=== PATIENT | female | born 1985 | race Caucasian/White ===

== ENCOUNTER 2017-08-26 10:16 | Emergency (ER) | payer OTHER ==
[2017-08-26] MEDS ORDERED: ONDANSETRON 4 MG/2 ML VIAL IVP STA (10:53)
[2017-08-26] MEDS ORDERED: HYDROmorphone 1 MG/ML SYRINGE IVP STA (10:53)
[2017-08-26 10:56] LABS: BILIRUBIN,URINE NEGATIVE (NEGATIVE)
[2017-08-26 11:00] LABS: HCG UR QUAL NEGATIVE; UA w/ MICROSCOPIC CHARGE YES
--- NOTE | 2017-08-26 11:00 | ED Physician Documentation ---
History of Present Illness - Stated complaint Stated Complaint: FEMALE - Chief complaint Chief Complaint: General - Additonal information Additional information: hx from pt 31 f to ER with NVD yesterday today several TBS BRBPR no fever no abd pain no travel no bad fod no sick contacts no fhx colon CA crohns or UC LMP > 1 yr ago, breast feeding her 18 m old, might be preg Review of Systems Constitutional: denies: Fever, Chills GI: reports: Vomiting, Diarrhea, Bloody / black stool. 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, Other Psych: Anxiety - Past Surgical History Past Surgical History: No - Present Medications Home Medications: Ambulatory Orders Medication Instructions Recorded Confirmed Metformin HCl 500 mg PO BID 04/06/15 08/26/17 Sertraline HCl [Zoloft] 100 mg PO DAILY 04/06/15 08/26/17 - Allergies Allergies/Adverse Reactions: Allergies Allergy/AdvReac Type Severity Reaction Status Date / Time No Known Drug Allergies Allergy Verified 07/29/16 13:22 - Social History Does the pt smoke?: No Smoking Status: Never smoker Does the pt drink ETOH?: No Does the pt have substance abuse?: No - Immunizations Immunizations are current?: Yes - POLST Patient has POLST: No PD ED PE NORMAL - Vitals Vital signs reviewed: Yes - Cardiac Cardiac: RRR - Respiratory Respiratory: No respiratory distress, Clear bilaterally - Abdomen Abdomen: Soft, Non tender - Rectal Rectal: Other (no hemorrhoid, no fissures, no mass on SHEA, small amt mucous and yellow brown stool occult blood neg) Results - Vitals Vitals: Vital Signs - 24 hr 08/26/17 10:26 Temperature 36.3 C L Heart Rate 85 Respiratory 16 Rate Blood Pressure 128/83 H O2 Saturation 96 Oxygen O2 Source Room air - Labs Labs: Laboratory Tests 08/26/17 08/26/17 10:35 11:00 Hgb 12.9 Urine Color YELLOW Urine Clarity HAZY Urine pH 6.0 Ur Specific [place] 1.025 Urine Protein NEGATIVE Urine Glucose (UA) NEGATIVE Urine Ketones NEGATIVE Urine Occult Blood NEGATIVE Urine Nitrite NEGATIVE Urine Bilirubin NEGATIVE Urine Urobilinogen 0.2 (NORMAL) Ur Leukocyte Esterase TRACE H Urine RBC 0-5 Urine WBC 4-5 Ur Squamous Epith Cells MANY Squamous H Urine Bacteria Many H Urine Mucus Marked Strands Ur Microscopic Review INDICATED Urine Culture Comments NOT INDICATED Urine HCG, Qual NEGATIVE Departure - Departure Disposition: 01 Home, Self Care Clinical Impression: Rectal bleed Condition: Good Instructions: ED Hematochezia Stable Follow-Up: [facility] [Provider Group] Comments: The test was negative. Your blood count is fine right now. On exam there is no further ongoing bleeding. And the diarrhea seems better. So for now it is OK for you to go home and enjoy your Thanksgiving. But please follow up at [facility] Thursday after the iday weekend to recheck your blood count and to discuss getting a colonoscopy to look for any bleeding polyps or bowel diseases such as crohns disease Return to the ER if worse over the weekend Forms: Activity restrictions
[2017-08-26 11:06] LABS: UR CULTURE IF IND NOT INDICATED
[2017-08-26 11:53] VITALS: BP 120/80
== END 2017-08-26 11:53 | disposition home or self-care (01) ==
LOC: ED 10:16
DX: K62.5 Hemorrhage of anus and rectum (principal)
CPT/HCPCS: 36415; 80048; 81001; 81003; 81025; 84703; 85018; 87086; 99283

== ENCOUNTER 2019-02-04 17:06 | Outpatient (CLI) | payer OTHER | END 2019-02-04 17:07 | disposition EMS.NT | LOC: EMS 17:06 | PROVIDERS: ATTEND Surgery | DX: R55 Syncope and collapse (principal); R11.2 Nausea with vomiting, unspecified ==

== ENCOUNTER 2019-07-23 10:13 | Emergency (ER) | payer OTHER ==
[2019-07-23 10:23] VITALS: BP 128/70
--- NOTE | 2019-07-23 10:51 | ED Physician Documentation ---
PD HPI URI - Stated complaint Stated Complaint: THROAT PX/FEVER - Chief complaint Chief Complaint: Heent - History obtained from History obtained from: Patient - History of Present Illness Timing - onset: How many days ago (2) Timing duration: Days (2) Timing details: Abrupt onset, Still present Associated symptoms: Fever, Chills, Sore throat, Swollen nodes. No: Nasal congestion, Dry cough, NVD Contributing factors: Sick contact (her daughter has similar for the past 4 days). 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 Psych: Anxiety - Past Surgical History Past Surgical History: No - Present Medications Home Medications: Ambulatory Orders Medication Instructions Recorded Confirmed Metformin HCl 500 mg PO BID 04/06/15 08/26/17 Sertraline HCl [Zoloft] 100 mg PO DAILY 04/06/15 08/26/17 Cephalexin [Keflex] 500 mg PO TID #21 capsule 07/23/19 Hydrocodone/Acetaminophen 1 each PO Q6H PRN #14 tablet 07/23/19 [Hydrocodon-Acetaminophen 5-325] dexAMETHasone [Decadron] 4 mg PO DAILY #5 tablet 07/23/19 - Allergies Allergies/Adverse Reactions: Allergies Allergy/AdvReac Type Severity Reaction Status Date / Time No Known Drug Allergies Allergy Verified 07/29/16 13:22 - Social History Does the pt smoke?: No Smoking Status: Never smoker Does the pt drink ETOH?: No Does the pt have substance abuse?: No - Immunizations Immunizations are current?: Yes - POLST Patient has POLST: No PD ED PE NORMAL - Vitals Vital signs reviewed: Yes - General General: Alert and oriented X 3, No acute distress, Well developed/nourished - HEENT HEENT: Ears normal. No: Pharynx benign (tonsils enlarged with white exudates. Rest of mouth is okay. ) - Neck Neck: Supple, no meningeal sign, Other (anterior adenopathy, tender, bilaterally. ) - Cardiac Cardiac: RRR, No murmur - Respiratory Respiratory: Clear bilaterally - Abdomen Abdomen: Soft, Non tender, No organomegaly - Derm Derm: Normal color, Warm and dry, No rash - Neuro Neuro: Alert and oriented X 3, No motor deficit, Normal speech Results - Vitals Vitals: Vital Signs - 24 hr 07/23/19 10:21 Temperature 37.4 C Heart Rate 94 Respiratory 18 Rate Blood Pressure 128/70 O2 Saturation 98 Oxygen O2 Source Room air - Labs Labs: Laboratory Tests 07/23/19 11:20 Group A Strep Rapid POSITIVE H PD MEDICAL DECISION MAKING - ED course Complexity details: considered differential, d/w patient Departure - Departure Disposition: 01 Home, Self Care Clinical Impression: Acute streptococcal pharyngitis Condition: Stable Record reviewed to determine appropriate education?: Yes Instructions: ED Strep Pharyngitis Conf Follow-Up: Fifi Bland ARNP [Primary Care Provider] - Prescriptions: Cephalexin [Keflex] 500 mg PO TID #21 capsule dexAMETHasone [Decadron] 4 mg PO DAILY #5 tablet Hydrocodone/Acetaminophen [Hydrocodon-Acetaminophen 5-325] 1 each PO Q6H PRN #14 tablet PRN Reason: pain Comments: Your strep test is positive. Stay well-hydrated and use Tylenol ibuprofen if needed for fevers and pains. Add hydrocodone if needed for worse pain. Decadron steroid for inflammation of the tonsils will help the pain a lot as well. Cephalexin as directed for a week for the infection. I would anticipate improvement over the next few days. Discharge Date/Time: 07/23/19 12:00
[2019-07-23] MEDS ORDERED: HYDROcod/ACETAM 5/325 MG TABLET PO STA (11:07)
[2019-07-23] MEDS ORDERED: cephALEXin 250 MG CAPSULE PO STA (11:07)
[2019-07-23] MEDS ORDERED: DEXAMETHASONE 10 MG/ML VIAL PO STA (11:07)
[2019-07-23] MEDS ORDERED: CHERRY SYRUP 10 ML UDC PO ONE (11:07)
== END 2019-07-23 12:00 | disposition home or self-care (01) ==
LOC: ED 10:13
DX: J02.0 Streptococcal pharyngitis (principal)
CPT/HCPCS: 87430; 99283; 99284; A9270

== ENCOUNTER 2019-10-27 17:27 | Emergency (ER) | payer OTHER ==
[2019-10-27 18:18] LABS: BILIRUBIN,URINE NEGATIVE (NEGATIVE); GLUCOSE, URINE (UA) NEGATIVE (NEGATIVE); KETONES,URINE (UA) NEGATIVE (NEGATIVE); LEUKOCYTE ESTERASE, URINE MODERATE (NEGATIVE); NITRITE,URINE NEGATIVE (NEGATIVE); OCCULT BLOOD,URINE NEGATIVE (NEGATIVE); PH,URINE 5.5 PH (5.0-7.5); PROTEIN,URINE NEGATIVE (NEGATIVE); UROBILINOGEN,URINE 0.2 (NORMAL) E.U./dL (NORMAL)
[2019-10-27 18:30] LABS: HCG UR QUAL NEGATIVE
[2019-10-27 18:31] LABS: CLARITY,URINE CLEAR (CLEAR)
[2019-10-27 18:41] LABS: BACTERIA,URINE None Seen /HPF (None Seen); RBC,URINE 0-5 /HPF (0-5); SQUAMOUS EPITHELIAL CELL,UR MANY Squamous (<= Few)
[2019-10-27 18:42] LABS: BASOPHILS % (AUTO) 0.4 %; EOSINOPHILS # (AUTO) 0.4 10^3/uL (0.0-0.7); EOSINOPHILS % (AUTO) 3.7 %; LYMPHOCYTES # (AUTO) 2.5 10^3/uL (1.5-3.5); LYMPHOCYTES % (AUTO) 26.8 %; MEAN CORPUSCULAR HEMOGLOBIN 28.3 pg (27.0-31.0); MEAN CORPUSCULAR HGB CONC 32.9 g/dL (32.0-36.0); MEAN CORPUSCULAR VOLUME 86.1 fL (81.0-99.0); MEAN PLATELET VOLUME 8.9 fL (7.9-10.8); MONOCYTES # (AUTO) 0.6 10^3/uL (0.0-1.0); MONOCYTES % (AUTO) 5.9 %; NEUTROPHILS % (AUTO) 62.8 %; PLT - PLATELET COUNT 297 10^3/uL (130-450); RED BLOOD COUNT 4.59 10^6/uL (4.20-5.40); RED CELL DISTRIBUTION WIDTH 12.9 % (12.0-15.0); WHITE BLOOD COUNT 9.5 x10^3/uL (4.8-10.8)
[2019-10-27 18:56] LABS: ALBUMIN 4.3 g/dL (3.2-5.5); ALBUMIN/GLOBULIN RATIO 1.3 (1.0-2.2); BILIRUBIN,TOTAL 0.4 mg/dL (0.2-1.0); CALCIUM 9.5 mg/dL (8.5-10.3); CREATININE 0.6 mg/dL (0.4-1.0); TOTAL PROTEIN 7.7 g/dL (6.7-8.2)
--- NOTE | 2019-10-27 19:13 | ED Physician Documentation ---
PD HPI ABD PAIN - Stated complaint Stated Complaint: RLQ ABD PAIN - Chief complaint Chief Complaint: Abd Pain - History obtained from History obtained from: Patient (Patient is a very pleasant 33-year-old female who presents with right lower quadrant pain that started this morning and has progressively gotten worse the patient reports her last period was in e is complaining of pain without diarrhea or constipation she does report vomiting x1 she has had a previous ruptured ovarian cyst, She denies any pelvic pain currently she denies any vaginal discharge she denies any dysuria or hematuria or flank pain or any history of kidney stones.) - History of Present Illness Timing - onset: How many hours ago (started this morning and is getting worse.) Review of Systems Constitutional: reports: Reviewed and negative Eyes: reports: Reviewed and negative Ears: reports: Reviewed and negative Nose: reports: Reviewed and negative Throat: reports: Reviewed and negative Cardiac: reports: Reviewed and negative Respiratory: reports: Reviewed and negative GI: reports: Abdominal Pain : reports: Reviewed and negative Skin: reports: Reviewed and negative Musculoskeletal: reports: Reviewed and negative Neurologic: reports: Reviewed and negative Psychiatric: reports: Reviewed and negative Endocrine: reports: Reviewed and negative Immunocompromised: reports: Reviewed and negative PD PAST MEDICAL HISTORY - Past Medical History Cardiovascular: None Respiratory: None Neuro: None Endocrine/Autoimmune: None GI: None 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, 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 cysts, Other : None HEENT: None Psych: None, Anxiety - Past Surgical History Past Surgical History: No - Present Medications Home Medications: Ambulatory Orders Medication Instructions Recorded Confirmed Metformin HCl 500 mg PO BID 04/06/15 08/26/17 Sertraline HCl [Zoloft] 100 mg PO DAILY 04/06/15 08/26/17 Cephalexin [Keflex] 500 mg PO TID #21 capsule 07/23/19 Hydrocodone/Acetaminophen 1 each PO Q6H PRN #14 tablet 07/23/19 [Hydrocodon-Acetaminophen 5-325] dexAMETHasone [Decadron] 4 mg PO DAILY #5 tablet 07/23/19 - Allergies Allergies/Adverse Reactions: Allergies Allergy/AdvReac Type Severity Reaction Status Date / Time No Known Drug Allergies Allergy Verified 10/27/19 17:40 - Social History Does the pt smoke?: No Smoking Status: Never smoker Does the pt drink ETOH?: No Does the pt have substance abuse?: No - Immunizations Immunizations are current?: Yes - POLST Patient has POLST: No PD ED PE NORMAL - Vitals Vital signs reviewed: Yes - General General: Alert and oriented X 3, No acute distress - HEENT HEENT: PERRL - Neck Neck: Supple, no meningeal sign - Cardiac Cardiac: RRR, No murmur - Respiratory Respiratory: Clear bilaterally - Abdomen Abdomen: Normal bowel sounds, Soft, Other (The abdomen soft there is tenderness in the right lower quadrant, she has normoactive bowel sounds there is no guarding or rebounding hepatosplenomegaly no CVA tenderness there is no midline abdominal pulsatile mass.) - Derm Derm: Warm and dry - Extremities Extremities: No deformity - Neuro Neuro: Alert and oriented X 3 - Psych Psych: Normal mood, Normal affect Results - Vitals Vitals: Vital Signs - 24 hr 10/27/19 10/27/19 10/27/19 17:40 21:01 22:25 Temperature 36.9 C Heart Rate 78 67 54 L Respiratory 18 16 16 Rate Blood Pressure 133/64 H 143/85 H 122/73 O2 Saturation 100 100 98 10/28/19 01:05 Temperature Heart Rate 78 Respiratory 17 Rate Blood Pressure 129/71 O2 Saturation 97 Oxygen O2 Source Room air - Labs Labs: Laboratory Tests 10/27/19 10/27/19 10/27/19 17:51 17:51 18:30 WBC 9.5 RBC 4.59 Hgb 13.0 Hct 39.5 MCV 86.1 MCH 28.3 MCHC 32.9 RDW 12.9 Plt Count 297 MPV 8.9 Neut # (Auto) 6.0 Lymph # (Auto) 2.5 [place] # (Auto) 0.6 Eos # (Auto) 0.4 Baso # (Auto) 0.0 Absolute Nucleated RBC 0.00 Nucleated RBC % 0.0 PT INR APTT Sodium Potassium Chloride Carbon Dioxide Anion Gap BUN Creatinine Estimated GFR (MDRD) Glucose Lactic Acid Calcium Total Bilirubin AST ALT Alkaline Phosphatase Total Protein Albumin Globulin Albumin/Globulin Ratio Lipase Urine Color LT. YELLOW Urine Clarity CLEAR Urine pH 5.5 Ur Specific [place] 1.010 1.010 Urine Protein NEGATIVE Urine Glucose (UA) NEGATIVE Urine Ketones NEGATIVE Urine Occult Blood NEGATIVE Urine Nitrite NEGATIVE Urine Bilirubin NEGATIVE Urine Urobilinogen 0.2 (NORMAL) Ur Leukocyte Esterase MODERATE H Urine RBC 0-5 Urine WBC 11-25 H Ur Squamous Epith Cells MANY Squamous H Urine Bacteria None Seen Ur Microscopic Review INDICATED Urine Culture Comments NOT INDICATED Urine HCG, Qual NEGATIVE 10/27/19 10/27/19 10/27/19 18:30 18:30 19:43 WBC RBC Hgb Hct MCV MCH MCHC RDW Plt Count MPV Neut # (Auto) Lymph # (Auto) [place] # (Auto) Eos # (Auto) Baso # (Auto) Absolute Nucleated RBC Nucleated RBC % PT 12.1 INR 1.1 APTT 33.5 H Sodium 137 Potassium 3.9 Chloride 103 Carbon Dioxide 23 Anion Gap 11.0 BUN 13 Creatinine 0.6 Estimated GFR (MDRD) 115 Glucose 119 H Lactic Acid 1.5 Calcium 9.5 Total Bilirubin 0.4 AST 20 ALT 23 Alkaline Phosphatase 66 Total Protein 7.7 Albumin 4.3 Globulin 3.4 Albumin/Globulin Ratio 1.3 Lipase 51 Urine Color Urine Clarity Urine pH Ur Specific [place] Urine Protein Urine Glucose (UA) Urine Ketones Urine Occult Blood Urine Nitrite Urine Bilirubin Urine Urobilinogen Ur Leukocyte Esterase Urine RBC Urine WBC Ur Squamous Epith Cells Urine Bacteria Ur Microscopic Review Urine Culture Comments Urine HCG, Qual PD MEDICAL DECISION MAKING - ED course Complexity details: other (I had an extensive discussion with the patient the patient was updated and reexamined her pain is resolved at this point her CT scan abdomen pelvis as well as ultrasound transvaginally are unremarkable other than an left-sided ovarian cyst the patient reports her pain is controlled and she like to follow-up with her primary care provider as well as 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
[2019-10-27] MEDS ORDERED: SODIUM CHLORIDE 0.9% 1,000 ML IV ONE (19:27)
[2019-10-27] MEDS: MORPHINE 2 MG/ML CARPUJECT IVP STA ×2 (19:51→22:12)
[2019-10-27 20:24] LABS: INR 1.1 (0.8-1.2); PT - PROTHROMBIN TIME 12.1 secs (9.9-12.6)
[2019-10-27 20:38] LABS: PARTIAL THROMBOPLASTIN TIME 33.5 secs (24.9-33.3)
[2019-10-27] MEDS ORDERED: IOVERSOL 320 100 ML VIAL IVP ONE ×2 (21:22→21:55)
[2019-10-27] MEDS ORDERED: KETOROLAC 30 MG/ML VIAL IVP STA (22:12)
--- NOTE | 2019-10-27 22:19 | CT Report ---
Reason: RLQ ABD PAIN Procedure Date: 10/27/2019 Accession Number: [id number] / [id number] Procedure: CT - Abdomen/Pelvis W CPT Code: Final Report FULL RESULT: EXAM: CT ABDOMEN AND PELVIS EXAM DATE: 10/27/2019 09:57 PM. CLINICAL HISTORY: RLQ ABD PAIN. COMPARISONS: None. TECHNIQUE: Routine helical CT imaging was performed through the abdomen and pelvis. IV contrast: OPTI 320 100ML. Enteric contrast: No. Reconstructions: Coronal and sagittal. In accordance with CT protocol optimization, one or more of the following dose reduction techniques were utilized for this exam: automated exposure control, adjustment of mA and/or KV based on patient size, or use of iterative reconstructive technique. FINDINGS: Lung Bases: Unremarkable. Liver: There is mild fatty infiltration of the liver. Gallbladder/Bile Ducts: Sludge is seen within the gallbladder. Spleen: Normal. Pancreas: Normal. Adrenal Glands: Normal. Kidneys: Normal. No masses or hydronephrosis. Peritoneal Cavity/Bowel: Normal. No free fluid, free air or adenopathy. No masses or acute inflammatory process. The appendix is well visualized and normal. The colon is unremarkable. Pelvic Organs: Normal. The bladder and visualized pelvic organs are within normal limits. There is a corpus luteum cyst associated with the left ovary. Vasculature: No aneurysms or other significant abnormality. Bones: No significant abnormality. Other: None. IMPRESSION: 1. Fatty infiltration of the liver or 2. Normal-appearing appendix. 3. Corpus luteum cyst left ovary. RADIA
--- NOTE | 2019-10-28 00:43 | Ultrasound Report ---
Reason: pelvic pain, R Procedure Date: 10/27/2019 Accession Number: [id number] / [id number] Procedure: US - Pelvic w/Transvag+Doppler Comp CPT Code: Addended Final Report FULL RESULT: EXAM: PELVIC ULTRASOUND WITH DOPPLERS CLINICAL HISTORY: Right lower quadrant abdominal and pelvic pain. History of irregular menses and polycystic ovarian syndrome. LMP 08/28/2019. COMPARISON: ABDOMEN/PELVIS W/ 10/27/2019 9:53 PM TECHNIQUE: Realtime transabdominal imaging performed to identify the uterus and adnexa and as an overview of other pelvic structures, followed by transvaginal imaging for better assessment of the endometrium and adnexa, with static image documentation. Color flow imaging and Doppler spectral analysis was performed to evaluate blood flow to the ovaries given pelvic pain and clinical concern for ovarian torsion. FINDINGS: Uterus: 9.2 x 5.8 x 5.0 cm, volume 139.5 cc. Anteverted position. Normal overall size and echotexture Masses: None. Endometrium: 16 mm. Heterogeneous with multiple small cystic spaces inferiorly. Cervix: Multiple nabothian cysts all less than 1 cm. Right Ovary: 3.4 x 2.4 x 2.2 cm, volume 9.3 cc. Normal echotexture. Arterial and venous blood flow are present. PSV 7.6 cm/sec. RI 0.74. Adnexa small right adnexal cyst measuring 1.2 x 0.8 x 0.7 cm. Left Ovary: 4.1 x 3.0 x 2.4 cm, volume 15.4 cc. Normal echotexture. A corpus luteum cyst is seen measuring 1.5 x 1.7 x 1.4 cm. Arterial and venous blood flow are present. PSV 19.0 cm/sec. RI 0.56. Adnexa are unremarkable. Free Fluid: Small volume. Other: None. IMPRESSION: 1. Borderline thickened endometrium with multiple small cystic changes, likely representing dilated endometrial glands suggestive of endometrial hyperplasia. 2. No evidence of ovarian torsion. 3. Left corpus luteum cyst. RADIA ADDENDUM: 10/28/19 01:03 No nabothian cysts are seen on the cervix. The small cysts described are actually cystic spaces within the endometrium.
[2019-10-28 01:05] VITALS: BP 129/71
== END 2019-10-28 01:21 | disposition home or self-care (01) ==
LOC: ED 17:27
DX: R10.31 Right lower quadrant pain (principal); N83.12 Corpus luteum cyst of left ovary; K76.0 Fatty (change of) liver, not elsewhere classified
CPT/HCPCS: 36415; 74177; 76830; 76856; 80053; 81001; 81025; 83605; 83690; 85025; 85610; 85730; 93975; 96361; 96374; 99284; Q9967; 81003; 87086

== ENCOUNTER 2020-03-27 10:07 | Outpatient (CLI) | payer OTHER ==
--- NOTE | 2020-03-27 10:38 | SLEEP CARE CONSULTATION ---
Information from patient questionnaire entered by Caity Sierra. I have reviewed and concur with the information entered by Caity Sierra. This document represents the service I personally performed and the decisions made by me, Makayla Porras MD, [facility]. History of Present Illness Service Date and Time: 03/27/2020 1007 Reason for Visit: New patient Chief Complaint: reports: Other (sleep apnea) Duration of Symptoms: all my life, but worse last 8 months Usual bedtime: 10 pm - 2 am Time it takes to fall asleep: a couple of minutes to a few hours Snores at night: Yes Observed to quit breathing while asleep: No Sleeps alone due to snoring: Yes Number of times waking at night: 2-4 Reasons for waking at night: reports: Choking, Snoring, Gasping for air, Pain, Bathroom Toss, Turn, or Twitch while sleeping: Yes Recalls having dreams: Yes Usually gets out of bed at: 7am weekdays, 10 am weekends Feels refreshed in the morning: No Morning headache: Yes Sleepy or fatigued during the day: Yes Ever fallen asleep while driving: No Takes day naps: Yes Dreams during day naps: Yes Prior sleep studies: No Additional HPI information: The patient is here because she is sure that she has obstructive sleep apnea. She reports loud snore, frequent awakenings at night occasionally from her own snore and choking, non-restorative sleep, and excessive daytime sleepiness. She also has hypertension. Her father had MAYTE. 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 Patient is and lives in [place]. Have you smoked in the past 12 months: No Alcohol use: Yes Alcohol amount and frequency: 1-2 times a year Caffeine use: Yes Caffeine amount and frequency: 1-2 a day Family History Family history of sleep disordered breathing: Yes Family Hx Sleep Apnea: Mother: Snoring, Father: Sleep apnea - Treated Allergies and Home Medications Drug allergies reviewed: Yes Home medication list reviewed: Yes Review of Systems Weight gain over past 5 years: 20 Cardiovascular: reports: high blood pressure, irregular heart rate or pulse Respiratory: reports: sputum production, other (constant stuffy nose) Gastrointestinal: reports: diarrhea, other (constipation) Urinary: denies: incontinence, frequency, urgency, impotence, other Neurological: reports: headaches Psychiatric: reports: Attention Deficit Hyperactivity, anxiety, depression Ear/Nose/Throat: reports: nasal congestion, sinus problems, dry mouth/throat Endocrine: reports: other (PCOS) Musculoskeletal: denies: joint pain, neck pain, back pain, joint swelling, muscle pain or cramping, mobility problems, other Immunologic: reports: sneezing, rash, itching, allergies to food or environment Physical Exam Vital signs obtained and entered by: exam is deferred due to the COVID-19 pandemic Height: 5 ft Weight: 180 lb Body Mass Index: 35.2 BMI Classification: Obese Impression and Plan IMPRESSION: 1. Obstructive Sleep Apnea-Hypopnea Syndrome, as suggested by history of loud and irregular snoring, frequent awakenings during the night, nocturnal choking, unrefreshed sleep, cognitive impairment, and daytime hypersomnolence. Narrow oropharynx and obesity are common predisposing factors for obstructive sleep apnea-hypopnea syndrome. Untreated obstructive sleep apnea can also cause hypertension. Pathophysiology of sleep-disordered breathing was discussed. I recommend proceeding to polysomnography to confirm the diagnosis and to assess severity. If she has significant sleep disordered breathing, a manual CPAP ti tration study will also be performed to find the optimal treatment pressure. I informed the patient of what the sleep studies involve and after some discussion, she agreed to proceed. Plan: 1. Schedule an in-laboratory polysomnography + manual CPAP titration study. 2. Avoid long distance driving or when feeling sleepy. 3. Avoid alcohol, sedative and muscle relaxant around bedtime. 4. Attempt to lose weight. 5. Return in 1 to 2 weeks after the study to discuss results and initiate therapy. Visit Type: In Office Time Spent with Patient (minutes): 15 Provider Statement: I spent 100% of the Face to Face Visit with the patient with greater than 50% spent counseling the patient and coordination of care.
== END 2020-03-27 10:08 | disposition home or self-care (01) ==
LOC: SC 10:07
PROVIDERS: ATTEND Internal Medicine Pulmonary Disease
DX: R06.83 Snoring (principal); G47.8 Other sleep disorders; G47.10 Hypersomnia, unspecified; R06.81 Apnea, not elsewhere classified; E66.9 Obesity, unspecified; Z68.35 Body mass index [BMI] 35.0-35.9, adult; I10 Essential (primary) hypertension
CPT/HCPCS: 99203; 99212

== ENCOUNTER 2020-05-17 12:47 | Emergency (ER) | payer OTHER ==
--- NOTE | 2020-05-17 12:57 | ED Physician Documentation ---
PD HPI FEMALE - Stated complaint Stated Complaint: BLEEDING - Chief complaint Chief Complaint: Abd Pain - History obtained from History obtained from: Patient - History of Present Illness Timing - onset: Last night Timing - duration: Days (1) Timing - details: Abrupt onset, Still present, Waxing and waning Associated symptoms: Vaginal bleeding. No: Genital sore/lesion, Dysuria Contributing factors: (about 6-7 weeks by dates. 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 denies: Vomiting, Diarrhea : reports: Missed period, Now EGA (6-7 weeks). 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, Ovarian cysts, Other : None HEENT: None Psych: None, Anxiety Musculoskeletal: None Derm: None - Past Surgical History Past Surgical History: No - Present Medications Home Medications: Ambulatory Orders Medication Instructions Recorded Confirmed Metformin HCl 500 mg PO BID 04/06/15 08/26/17 Sertraline HCl [Zoloft] 100 mg PO DAILY 04/06/15 08/26/17 Cephalexin [Keflex] 500 mg PO TID #21 capsule 07/23/19 Hydrocodone/Acetaminophen 1 each PO Q6H PRN #14 tablet 07/23/19 [Hydrocodon-Acetaminophen 5-325] dexAMETHasone [Decadron] 4 mg PO DAILY #5 tablet 07/23/19 Progesterone,Micronized 100 mg VG DAILY #10 insert 05/17/20 [Endometrin] - Allergies Allergies/Adverse Reactions: Allergies Allergy/AdvReac Type Severity Reaction Status Date / Time No Known Drug Allergies Allergy Verified 05/17/20 12:54 - Social History Does the pt smoke?: No Smoking Status: Never smoker Does the pt drink ETOH?: No Does the pt have substance abuse?: No - Immunizations Immunizations are current?: Yes - POLST Patient has POLST: No PD ED PE NORMAL - Vitals Vital signs reviewed: Yes - General General: Alert and oriented X 3, No acute distress, Well developed/nourished - Cardiac Cardiac: RRR, No murmur - Respiratory Respiratory: Clear bilaterally - Abdomen Abdomen: Normal bowel sounds, Soft, Non tender, Non distended - Female Female : Deferred - Back Back: No CVA TTP - Derm Derm: Normal color, Warm and dry - Neuro Neuro: Alert and oriented X 3, No motor deficit, Normal speech Results - Vitals Vitals: Vital Signs - 24 hr 05/17/20 05/17/20 05/17/20 12:51 13:35 15:52 Temperature 36.8 C Heart Rate 90 75 79 Respiratory 17 17 18 Rate Blood Pressure 140/67 H 133/76 H 142/77 H O2 Saturation 98 100 100 Oxygen O2 Source Room air - Labs Labs: Laboratory Tests 05/17/20 05/17/20 05/17/20 13:30 13:30 13:30 WBC 9.2 RBC 4.00 L Hgb 11.9 L Hct 35.7 L MCV 89.3 MCH 29.8 MCHC 33.3 RDW 13.2 Plt Count 242 MPV 9.1 Neut # (Auto) 6.4 Lymph # (Auto) 2.0 Gulf # (Auto) 0.5 Eos # (Auto) 0.3 Baso # (Auto) 0.1 Absolute Nucleated RBC 0.00 Nucleated RBC % 0.0 Sodium 136 Potassium 3.6 Chloride 104 Carbon Dioxide 21 Anion Gap 11.0 BUN 9 Creatinine 0.5 Estimated GFR (MDRD) 141 Glucose 126 H Calcium 9.4 Total Bilirubin 0.3 AST 16 ALT 17 Alkaline Phosphatase 67 Total Protein 7.2 Albumin 4.1 Globulin 3.1 Albumin/Globulin Ratio 1.3 Lipase 38 HCG, Quant 15380.00 Urine Color Urine Clarity Urine pH Ur Specific [place] Urine Protein Urine Glucose (UA) Urine Ketones Urine Occult Blood Urine Nitrite Urine Bilirubin Urine Urobilinogen Ur Leukocyte Esterase Ur Microscopic Review Urine Culture Comments 05/17/20 13:30 WBC RBC Hgb Hct MCV MCH MCHC RDW Plt Count MPV Neut # (Auto) Lymph # (Auto) Gulf # (Auto) Eos # (Auto) Baso # (Auto) Absolute Nucleated RBC Nucleated RBC % Sodium Potassium Chloride Carbon Dioxide Anion Gap BUN Creatinine Estimated GFR (MDRD) Glucose Calcium Total Bilirubin AST ALT Alkaline Phosphatase Total Protein Albumin Globulin Albumin/Globulin Ratio Lipase HCG, Quant Urine Color YELLOW Urine Clarity CLEAR Urine pH 6.0 Ur Specific [place] <=1.005 Urine Protein NEGATIVE Urine Glucose (UA) NEGATIVE Urine Ketones NEGATIVE Urine Occult Blood NEGATIVE Urine Nitrite NEGATIVE Urine Bilirubin NEGATIVE Urine Urobilinogen 0.2 (NORMAL) Ur Leukocyte Esterase NEGATIVE Ur Microscopic Review NOT INDICATED Urine Culture Comments NOT INDICATED - Rads (name of study) OB U/S Radiology: Prelim report reviewed (IUP at 6w3d with visible FHB. Small subchorionic bleed noted. ), See rad report PD MEDICAL DECISION MAKING - ED course Complexity details: reviewed results (patient is known blood type A+ so did not get blood type here. ), considered differential, d/w patient Departure - Departure Disposition: 01 Home, Self Care Clinical Impression: Vaginal bleeding Qualifiers: Weeks of gestation: less than 8 weeks Qualified Code(s): Z3A.01 - Less than 8 weeks gestation of Condition: Stable Record reviewed to determine appropriate education?: Yes Follow-Up: Fifi Bland ARNP [Primary Care Provider] - Prescriptions: Progesterone,Micronized [Endometrin] 100 mg VG DAILY #10 insert Comments: Stay well-hydrated. Regular activity with the exception of avoiding (bouncing) type activity such as jogging and jumping and aerobic. This would be for a week or so. Tylenol every 4 hours if needed for cramps or pains. At this point in you can use ibuprofen every 6 hours if needed as well. Progesterone vaginal suppository daily to try to reduce labor. 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 Recheck if not improved well over the next couple of days and return if significant bleeding cramps pains or fevers. Discharge Date/Time: 05/17/20 15:59
[2020-05-17] MEDS ORDERED: SODIUM CHLORIDE 0.9% 1,000 ML IV STA (13:15)
[2020-05-17 13:36] LABS: BASOPHILS # (AUTO) 0.1 10^3/uL (0.0-0.1); BASOPHILS % (AUTO) 0.5 %; EOSINOPHILS # (AUTO) 0.3 10^3/uL (0.0-0.7); EOSINOPHILS % (AUTO) 2.9 %; HGB - HEMOGLOBIN 11.9 g/dL (12.0-16.0); LYMPHOCYTES % (AUTO) 21.3 %; MEAN CORPUSCULAR HEMOGLOBIN 29.8 pg (27.0-31.0); MEAN CORPUSCULAR HGB CONC 33.3 g/dL (32.0-36.0); MEAN CORPUSCULAR VOLUME 89.3 fL (81.0-99.0); MEAN PLATELET VOLUME 9.1 fL (7.9-10.8); MONOCYTES # (AUTO) 0.5 10^3/uL (0.0-1.0); MONOCYTES % (AUTO) 5.4 %; NEUTROPHILS # (AUTO) 6.4 10^3/uL (1.5-6.6); NEUTROPHILS % (AUTO) 69.5 %; PLT - PLATELET COUNT 242 10^3/uL (130-450); RED CELL DISTRIBUTION WIDTH 13.2 % (12.0-15.0); WHITE BLOOD COUNT 9.2 x10^3/uL (4.8-10.8)
[2020-05-17 13:45] LABS: BILIRUBIN,URINE NEGATIVE (NEGATIVE); CLARITY,URINE CLEAR (CLEAR); GLUCOSE, URINE (UA) NEGATIVE (NEGATIVE); KETONES,URINE (UA) NEGATIVE (NEGATIVE); LEUKOCYTE ESTERASE, URINE NEGATIVE (NEGATIVE); NITRITE,URINE NEGATIVE (NEGATIVE); OCCULT BLOOD,URINE NEGATIVE (NEGATIVE); PROTEIN,URINE NEGATIVE (NEGATIVE); UROBILINOGEN,URINE 0.2 (NORMAL) E.U./dL (NORMAL)
[2020-05-17 13:53] LABS: ALBUMIN 4.1 g/dL (3.2-5.5); ALBUMIN/GLOBULIN RATIO 1.3 (1.0-2.2); BILIRUBIN,TOTAL 0.3 mg/dL (0.2-1.0); CALCIUM 9.4 mg/dL (8.5-10.3); CREATININE 0.5 mg/dL (0.4-1.0); TOTAL PROTEIN 7.2 g/dL (6.7-8.2)
--- NOTE | 2020-05-17 15:31 | Ultrasound Report ---
PROCEDURE: OB First Trimester INDICATIONS: early , with vag bleeding today OUTSIDE/PRIOR DATING DATA: Last menstrual period (LMP): 03/16/2020. LMP-based estimated date of delivery ([place]): 12/21/2020. First dating scan (date and location): 05/17/2020. Estimated date of delivery ([place]) from first dating scan: 01/07/2021. TECHNIQUE: Real-time scanning was performed of the fetus and maternal pelvic organs, with image documentation. COMPARISON: Ultrasound pelvis 10/27/2019. FINDINGS: Embryo: There is an intrauterine with a gestational sac, yolk sac, and pole visualiz ed. The crown-rump length measures up to 0.6 cm corresponding to gestational age of 6 weeks 3 days. T here is heart motion with a rate of 118 beats per minute. There is a small hypoechoic region ad jacent to the gestational sac measuring 0.9 x 1.1 x 0.5 cm compatible with a small subchorionic hemat esther. Measurement variability in dating: +/- 4 weeks by LMP, +/- 7 days by mean sac diameter (use before 6 weeks gestation if crown-rump length not able to be measured), +/- 5 days by crown-rump length (6-12 weeks gestation). Maternal organs: Ovaries appear within normal size limits. There is a thick-walled cyst in the left ovary measuring up to 2.5 x 2 x 2.3 cm compatible with a corpus luteal cyst. Limited images through the kidneys demonstrate no hydronephrosis. IMPRESSION: 1. Single living intrauterine with calculated gestational age of 6 weeks 3 days correspondi ng to an estimated delivery date of 01/07/2021. 2. Small subchorionic hematoma. Recommend attention on followup. 3. Probable corpus luteal cyst in the left ovary. Reviewed by: Deangelo Wheeler MD on 05/17/2020 3:30 PM PDT Approved by: Deangelo Wheeler MD on 05/17/2020 3:30 PM PDT Station ID: [id number]
[2020-05-17 15:52] VITALS: BP 142/77
== END 2020-05-17 15:59 | disposition home or self-care (01) ==
LOC: ED 12:47
DX: O20.9 Hemorrhage in early pregnancy, unspecified (principal); Z3A.01 Less than 8 weeks gestation of pregnancy
CPT/HCPCS: 36415; 76801; 76817; 80053; 81001; 81003; 83690; 84702; 85025; 87086; 96360; 99284

== ENCOUNTER 2020-07-10 13:05 | Outpatient (CLI) | payer OTHER ==
--- NOTE | 2020-07-10 13:49 | SLEEP CARE CONSULTATION ---
Information from patient questionnaire entered by Ivett Meyer. I have reviewed and concur with the information entered by Ivett Meyer. This document represents the service I personally performed and the decisions made by me, Cassandra Vasquez ARNP. History of Present Illness Service Date and Time: 07/10/2020 1305 Previous diagnosis: Mild, Obstructive Sleep Apnea-Hypopnea Syndrome AHI: 8.9 Reason for follow up: first compliance (05/10) Equipment type: CPAP [facility] Mask style: Full face Backup mask available: No (keep old mask when replaced) Last cushion change: about a month Prior sleep studies: No Year and Where: 2019 [facility] Type of Sleep Study: Polysomnography HPI additional information: NICK URBINA was diagnosed to have mild, AHI 8.9, obstructive sleep apnea- hypopnea syndrome and returned today for CPAP therapy first compliance follow- up. Sleep Study - Results Prior sleep studies: No CPAP Compliance Data - Data Reviewed with Patient Average duration of nightly device use: 6 h 28 min Compliance rate %: 77 Current pressure setting (cmH2O): 4-15 Average residual AHI: 0.2 Average large leak: 10.0 L/min Subjective Patient concerns: reports: nasal congestion (has a deviated septum and needs a surgery), dry mouth, nose, throat. denies: aerophagia, mask discomfort, air blowing in eyes, mask leak noise, condensation in mask/hose, epistaxis, other Observed to snore while using device: Yes (only on the right side) Current pressure setting perceived as: comfortable On therapy, patient: reports: sleeping better, awakening more refreshed, being more awake and alert during the day, more rested overall. denies: drowsiness while driving Initial [place] Sleepiness Scale score: 13 (in 2020) Current [place] Sleepiness Scale score: 13 Allergies and Home Medications Drug allergies reviewed: Yes (NKDA) Home medication list reviewed: Yes ( vitamin) Review of Systems Review of systems same as previous: No (14.5 weeks ) Physical Exam Heart Rate: 72 O2 Saturation: 97 Height: 5 ft Weight: 187 lb Body Mass Index: 36.5 BMI Classification: Obese Impression and Plan 1. Obstructive Sleep Apnea-Hypopnea Syndrome, mild, with good treatment compliance and great apnea control. On CPAP therapy, the patient has better sleep quality and is more rested overall. She is a mouthbreather but states she has a deviated septum and is only able to breathe through her nose if on her left side. She is 14.5 weeks and cannot have the septoplasty to correct the problem. Oral dryness can be reduced by adjusting humidity setting higher or heated hose lower or by adjusting both settings. Oral dryness can also be reduced by reducing mask leaks. Patient advised that chronic oral dryness can affect dental health and advised to follow up with dentist. In addition, there are oral dryness products that can be used to reduce dryness such as Biotene products, Dry mouth rinse and Xylomelts. Patient to discuss best option with dentist. She also experiences some nasal congestion and she was advised that nasal congestion can be reduced with increasing the CPAP humidity on her device. The heated hose can be adjusted higher if condensation with higher humidity setting. Saline nasal spray sample was also given to use prior to CPAP to clear nasal secretions and wash off any nasal allergens to facilitate nasal breathing. Patient's apnea severity and rationale for treatment to reduce apnea, improve sleep quality and reduce cardiovascular and cerebrovascular events was reviewed. I also reviewed the benefit of consistent device use of CPAP for her hypertension. * Changeauto CPAP pressure to 12-15 cmH2O * Notify me if snoring with mask or feeling that the pressure is too much or too little * Call this office if any problems using CPAP * Return for follow up in 1-2 months, or sooner if concerns arise Visit Type: In Office Time Spent with Patient (minutes): 24 Provider Statement: I spent 100% of the Face to Face Visit with the patient with greater than 50% spent counseling the patient and coordination of care.
== END 2020-07-10 13:06 | disposition home or self-care (01) ==
LOC: SC 13:05
PROVIDERS: ATTEND Nurse Practitioner Family
DX: G47.33 Obstructive sleep apnea (adult) (pediatric) (principal); E66.9 Obesity, unspecified; Z68.36 Body mass index [BMI] 36.0-36.9, adult
CPT/HCPCS: 99212; 99213

== ENCOUNTER 2020-08-07 16:25 | Outpatient (CLI) | payer OTHER ==
--- NOTE | 2020-08-07 17:18 | SLEEP CARE CONSULTATION ---
Information from patient questionnaire entered by Ivett Meyer. I have reviewed and concur with the information entered by Ivett Meyer. This document represents the service I personally performed and the decisions made by me, Cassandra Vasquez ARNP. History of Present Illness Service Date and Time: 08/07/2020 1625 Previous diagnosis: Mild, Obstructive Sleep Apnea-Hypopnea Syndrome AHI: 8.9 Reason for follow up: one month (Followup pressure change) Equipment type: CPAP Equipment obtained from: [employer] (getting supplies as needed) Mask style: Full face Backup mask available: Yes (old mask) Last cushion change: 2-3 weeks ago Prior sleep studies: No Year and Where: 2019 [facility] Type of Sleep Study: Polysomnography HPI additional information: NICK URBINA was diagnosed to have mild, AHI 8.9, obstructive sleep apnea- hypopnea syndrome and returned today for CPAP therapy 6 week pressure change follow-up. Sleep Study - Results Type of Sleep Study: Polysomnography Prior sleep studies: No Year and Where: 2019 [facility] CPAP Compliance Data - Data Reviewed with Patient Average duration of nightly device use: 5 hours 10 minutes Compliance rate %: 77 Current pressure setting (cmH2O): 12-15 Humidity settin Average residual AHI: 0.2 Central apnea: 0.1 Obstructive apnea: 0.0 Subjective Patient concerns: reports: aerophagia, air blowing in eyes, mask leak noise (sometimes, will wake her up), condensation in mask/hose, nasal congestion (), dry mouth, nose, throat (most mornings and during the night, mouth breathing), other (smell in machine makes her nauseated; she is ). denies: mask discomfort, epistaxis Observed to snore while using device: Yes (only on right side, avoids this side) Current pressure setting perceived as: too high (in the beginning after the pressure change) On therapy, patient: reports: sleeping better, awakening more refreshed, being more awake and alert during the day, more rested overall. denies: drowsiness while driving Initial [place] Sleepiness Scale score: 13 (in 2019) Current [place] Sleepiness Scale score: 12 Allergies and Home Medications Drug allergies reviewed: Yes (NKDA) Home medication list reviewed: Yes ( vitamins) Review of Systems Review of systems same as previous: No () Physical Exam Heart Rate: 83 O2 Saturation: 98 Height: 5 ft Weight: 188 lb Body Mass Index: 36.7 BMI Classification: Obese Impression and Plan 1. Obstructive Sleep Apnea-Hypopnea Syndrome, mild, with fair treatment compliance and good apnea control. On CPAP therapy, the patient has better sleep quality and is more rested overall. She has been getting nauseated due to odor in the CPAP machine, even after cleaning thoroughly. Patient is 18.5 weeks and very sensitive to odors. She has had some aerophagia, especially when waking up in the night for the bathroom causing burping. To reduce symptoms of aerophagia, the CPAP pressure will be reduced to 10-12 cmH2O. Patient advised to contact me if this does not reduce symptoms or if pressure change uncomfortable. She has had some nasal congestion and is using the saline nasal spray as needed. Nasal congestion can be reduced with increasing the CPAP humidity as shown on sample device. The heated hose can be adjusted higher if condensation with higher humidity setting. She has also been having trouble with oral dryness. She is a mouth breather, especially when her nose is congested. She also has a deviated septum. Oral dryness can be reduced by adjusting humidity setting higher or heated hose lower or by adjusting both settings. She was instructed to increase humidity to reduce congestion. Patient's apnea severity and rationale for treatment to reduce apnea, improve sleep quality and reduce cardiovascular and cerebrovascular events was reviewed. I also reviewed the benefit of consistent device use of CPAP for hypertension. * Change autoCPAP pressure to 10-12 cmH2O * Notify me if snoring with mask or feeling that the pressure is too much or too little * Attempt to lose weight * Call this office if any problems using CPAP * Return for follow up in 1-2 months, or sooner if concerns arise Counseling Topics: Spare mask Visit Type: In Office Time Spent with Patient (minutes): 21 Provider Statement: I spent 100% of the Face to Face Visit with the patient with greater than 50% spent counseling the patient and coordination of care.
== END 2020-08-07 16:26 | disposition home or self-care (01) ==
LOC: SC 16:25
PROVIDERS: ATTEND Nurse Practitioner Family
DX: G47.33 Obstructive sleep apnea (adult) (pediatric) (principal); E66.9 Obesity, unspecified; Z68.36 Body mass index [BMI] 36.0-36.9, adult
CPT/HCPCS: 99212

== ENCOUNTER 2020-09-11 16:45 | Outpatient (CLI) | payer OTHER ==
--- NOTE | 2020-09-11 17:28 | SLEEP CARE CONSULTATION ---
Information from patient questionnaire entered by Ivett Meyer. I have reviewed and concur with the information entered by Ivett Meyer. This document represents the service I personally performed and the decisions made by me, Cassandra Vasquez ARNP. History of Present Illness Service Date and Time: 09/11/2020 1645 Previous diagnosis: Mild, Obstructive Sleep Apnea-Hypopnea Syndrome AHI: 8.9 Equipment type: CPAP Equipment obtained from: [employer] (getting supplies as needed) Mask style: Full face Backup mask available: Yes (old mask) Last cushion change: 3 weeks ago Prior sleep studies: No Year and Where: 2019 [facility] Type of Sleep Study: Polysomnography HPI additional information: NICK URBINA was diagnosed to have mild, AHI 8.9, obstructive sleep apnea- hypopnea syndrome and returned today for CPAP therapy 6 week pressure change follow-up. Sleep Study - Results Type of Sleep Study: Polysomnography Prior sleep studies: No Year and Where: 2019 [facility] CPAP Compliance Data - Data Reviewed with Patient Average duration of nightly device use: 6 h 23 min Compliance rate %: 63 Current pressure setting (cmH2O): 10-12 Humidity settin Average residual AHI: 0.1 Subjective Missed days of use due to: reports: other (tubing broke and was unable to use machine) Patient concerns: reports: nasal congestion (worse with CPAP due to constriction of nose, takes OTC allergy), dry mouth, nose, throat (she is a mouthbreather, has a deviated septum that will be fixed when able). denies: aerophagia, mask discomfort, air blowing in eyes, mask leak noise, condensation in mask/hose, epistaxis, other Observed to snore while using device: Yes (only on her right side) Current pressure setting perceived as: comfortable On therapy, patient: reports: sleeping better, awakening more refreshed, being more awake and alert during the day, more rested overall. denies: drowsiness while driving Initial [place] Sleepiness Scale score: 13 (in 2019) Current [place] Sleepiness Scale score: 12 Allergies and Home Medications Drug allergies reviewed: Yes (NKDA) Home medication list reviewed: Yes (no changes) Review of Systems Review of systems same as previous: Yes (no changes) Physical Exam Heart Rate: 86 O2 Saturation: 99 Height: 5 ft Weight: 193 lb Body Mass Index: 37.7 BMI Classification: Obese Impression and Plan 1. Obstructive Sleep Apnea-Hypopnea Syndrome, mild, with fair treatment compliance and excellent apnea control. On CPAP therapy, the patient has better sleep quality and is more rested overall. She is and due end of January. She feels the pressure is comfortable. Her compliance is down mainly due to tubing breaking and she was unable to use the CPAP machine, she is almost there at 63% therapy compliance. She has some oral dryness because she is a mouth breather as well as some nasal congestion. Oral dryness and nasal congestion can be reduced by adjusting humidity setting higher or heated hose lower or by adjusting both settings. Oral instructions given on how to change humidity and heated hose settings with rationale explaining why to change. Patient's apnea severity and rationale for treatment to reduce apnea, improve sleep quality and reduce cardiovascular and cerebrovascular events was reviewed. I also reviewed the benefit of consistent device use of CPAP for hypertension. * Continue auto CPAP pressure at 10-12 cmH2O * Notify me if snoring with mask or feeling that the pressure is too much or too little * Call this office if any problems using CPAP * Return for follow up in 3 months, or sooner if concerns arise Counseling Topics: Spare mask Visit Type: In Office Time Spent with Patient (minutes): 17 Provider Statement: I spent 100% of the Face to Face Visit with the patient with greater than 50% spent counseling the patient and coordination of care.
== END 2020-09-11 16:46 | disposition home or self-care (01) ==
LOC: SC 16:45
PROVIDERS: ATTEND Nurse Practitioner Family
DX: G47.33 Obstructive sleep apnea (adult) (pediatric) (principal); E66.9 Obesity, unspecified; Z68.37 Body mass index [BMI] 37.0-37.9, adult
CPT/HCPCS: 99212; 99213

== ENCOUNTER 2020-12-05 16:40 | Outpatient (CLI) | payer OTHER ==
--- NOTE | 2020-12-05 17:22 | SLEEP CARE CONSULTATION ---
Information from patient questionnaire entered by Ivett Meyer. I have reviewed and concur with the information entered by Ivett Meyer. This document represents the service I personally performed and the decisions made by , Cassandra Vasquez ARNP. History of Present Illness Service Date and Time: 12/05/2020 1640 Previous diagnosis: Mild, Obstructive Sleep Apnea-Hypopnea Syndrome AHI: 8.9 Reason for follow up: three month (followup) Equipment type: CPAP Equipment obtained from: [facility] (getting supplies as needed) Mask style: Full face Backup mask available: Yes (old mask) Last cushion change: 1 month Prior sleep studies: No Year and Where: 2019 [facility] Type of Sleep Study: Polysomnography HPI additional information: NICK URBINA was diagnosed to have mild, AHI 8.9, obstructive sleep apnea- hypopnea syndrome and returned today for CPAP therapy three month follow-up. CPAP Compliance Data - Data Reviewed with Patient Average duration of nightly device use: 6 hours 20 minutes Compliance rate %: 64 (last 73 days; 73% last 30 days) Current pressure setting (cmH2O): 10-12 Average residual AHI: 0.1 Central apnea: 0.0 Obstructive apnea: 0.0 Subjective Missed days of use due to: reports: other (/tube issues) Patient concerns: reports: mask leak noise, nasal congestion, dry mouth, nose, throat (has increased), epistaxis, other (snore while using device, bad odors). denies: aerophagia, mask discomfort, air blowing in eyes, condensation in mask/hose Observed to snore while using device: No Current pressure setting perceived as: comfortable On therapy, patient: reports: sleeping better, awakening more refreshed, being more awake and alert during the day, more rested overall. denies: drowsiness while driving Initial [place] Sleepiness Scale score: 13 (in 2020) Current [place] Sleepiness Scale score: 14 Allergies and Home Medications Home medication list reviewed: Yes (no new medications) Review of Systems Review of systems same as previous: Yes (, 8 months) Physical Exam Heart Rate: 90 O2 Saturation: 98 Height: 5 ft Weight: 196 lb Body Mass Index: 38.2 BMI Classification: Obese Impression and Plan 1. Obstructive Sleep Apnea-Hypopnea Syndrome, mild, with fair treatment compliance and excellent apnea control. On CPAP therapy, the patient has better sleep quality and is more rested overall. She has had some issues with nasal congestion, dry mouth, and one episode of epistaxis. She states she is 8 months and feels that her other symptoms may just be being very . She has increased her humidity to combat the oral dryness but has to reduce it when she gets some condensation in the tubing that makes sound. She did not get the heated tubing so she turns the humidity back down. I advised her to get the heated tubing through her DME to be able to control the humidity and condensation. She voiced understanding. She is otherwise doing well with the CPAP therapy. Her last 30 day report shows 73% compliance. Patient's apnea severity and rationale for treatment to reduce apnea, improve sleep quality and reduce cardiovascular and cerebrovascular events was reviewed. I also reviewed the benefit of consistent device use of CPAP for hypertension. * Continue auto CPAP pressure at 10-11 cmH2O * Notify me if snoring with mask or feeling that the pressure is too much or too little * Attempt to lose weight * Call this office if any problems using CPAP * Return for follow up in 6 months, or sooner if concerns arise Counseling Topics: Spare mask Visit Type: In Office Time Spent with Patient (minutes): 24 Provider Statement: I spent 100% of the Face to Face Visit with the patient with greater than 50% spent counseling the patient and coordination of care.
== END 2020-12-05 16:41 | disposition home or self-care (01) ==
LOC: SC 16:40
PROVIDERS: ATTEND Nurse Practitioner Family
DX: O99.353 Diseases of the nervous system complicating pregnancy, third trimester (principal); G47.33 Obstructive sleep apnea (adult) (pediatric); O99.213 Obesity complicating pregnancy, third trimester; E66.9 Obesity, unspecified; Z3A.00 Weeks of gestation of pregnancy not specified
CPT/HCPCS: 99212; 99213

== ENCOUNTER 2023-05-29 11:43 | Emergency (ER) | payer OTHER ==
[2023-05-29 11:55] VITALS: BP 148/83; O2SAT 99
--- NOTE | 2023-05-29 12:20 | ED Physician Documentation ---
PD HPI OPHTHO - Stated complaint Stated Complaint: LT EYE PX - Chief complaint Chief Complaint: Heent - History obtained from History obtained from: Patient ([place] eating yesterday without eye protection and now has pain of the left eye after she thinks something contacted the eye. 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 PROPOSAL: None, Ovarian cysts, Other : None HEENT: None Psych: None, Anxiety Musculoskeletal: None Derm: None - Past Surgical History Past Surgical History: No - Present Medications Home Medications: Ambulatory Orders Medication Instructions Recorded Confirmed Metformin HCl 500 mg PO BID 04/06/15 05/29/23 Sertraline HCl [Zoloft] 50 mg PO DAILY 04/06/15 05/29/23 Erythromycin Base [Erythromycin 1 appful OP 5XD 7 Days #1 gm 05/29/23 Ophthalmic Ointment] Ketorolac 0.45% Ophth Drops 1 each OPTH Q6H PRN #1 each 05/29/23 [Acuvail] Lisdexamfetamine Dimesylate 50 mg PO DAILY 05/29/23 05/29/23 [Vyvanse] lamoTRIgine [Lamictal Xr] 50 mg PO DAILY 05/29/23 05/29/23 - Allergies Allergies/Adverse Reactions: Allergies Allergy/AdvReac Type Severity Reaction Status Date / Time No Known Drug Allergies Allergy Verified 05/17/20 12:54 - Social History Does the pt smoke?: No Smoking Status: Never smoker Does the pt drink ETOH?: No Does the pt have substance abuse?: No - Immunizations Immunizations are current?: Yes - POLST Patient has POLST: No PD ED PE NORMAL - Vitals Vital signs reviewed: Yes - General General: Alert and oriented X 3, No acute distress - HEENT HEENT: PERRL, EOMI, Other (There is a small corneal abrasion medially. No foreign body identified.) - Neuro Neuro: Alert and oriented X 3, Normal speech Results - Vitals Vitals: Vital Signs - 24 hr 05/29/23 11:48 Temperature 37 C Heart Rate 105 H Respiratory 20 Rate Blood Pressure 148/83 H O2 Saturation 99 Oxygen O2 Source Room air Departure - Departure Disposition: 01 Home, Self Care Clinical Impression: Corneal abrasion, left Condition: Good Record reviewed to determine appropriate education?: Yes Instructions: ED Eye Injury Corneal Abrasion Prescriptions: Ketorolac 0.45% Ophth Drops [Acuvail] 1 each OPTH Q6H PRN #1 each PRN Reason: eye pain Erythromycin Base [Erythromycin Ophthalmic Ointment] 1 appful OP 5XD 7 Days #1 gm Comments: This is a good excuse to follow-up with your unemployment examiner early next week to assess healing and for routine care. Return for new or worsening symptoms.
== END 2023-05-29 12:37 | disposition home or self-care (01) ==
LOC: ED 11:43
DX: S05.02XA Injury of conjunctiva and corneal abrasion without foreign body, left eye, initial encounter (principal); X58.XXXA Exposure to other specified factors, initial encounter; Y93.H2 Activity, gardening and landscaping
CPT/HCPCS: 99282; 99283

== ENCOUNTER 2024-06-22 13:34 | Emergency (ER) | payer OTHER ==
[2024-06-22] MEDS ORDERED: lidocaine 1% 20 ML MDV SUBQ ONE (13:52)
--- NOTE | 2024-06-22 13:53 | ED Physician Documentation ---
History of Present Illness - Stated complaint Stated Complaint: LT POINTER LAC - Chief complaint Chief Complaint: Laceration - Additonal information Additional information: Patient is a 38-year-old female presenting to the emergency department with left index finger laceration. Patient notes she was cutting fabric and when she pushed her scissors through the fabric she sustained laceration to left index finger. Patient denies any numbness or tingling no difficulty moving her finger. She notes severe pain to the tip of her distal finger. Patient is up-to-date on her tetanus as her last tetanus was in 2020. Patient is right-handed. 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 REP: Ovarian cysts, Other : None HEENT: None Psych: Anxiety Musculoskeletal: None Derm: None - Past Surgical History Past Surgical History: No - Present Medications Home Medications: Ambulatory Orders Medication Instructions Recorded Confirmed Metformin HCl 500 mg PO BID 04/06/15 05/29/23 Sertraline HCl [Zoloft] 50 mg PO DAILY 04/06/15 05/29/23 Lisdexamfetamine Dimesylate 50 mg PO DAILY 05/29/23 05/29/23 [Vyvanse] lamoTRIgine [Lamictal Xr] 50 mg PO DAILY 05/29/23 05/29/23 - Allergies Allergies/Adverse Reactions: Allergies Allergy/AdvReac Type Severity Reaction Status Date / Time No Known Drug Allergies Allergy Verified 06/22/24 13:45 - Social History Does the pt smoke?: No Smoking Status: Never smoker Does the pt drink ETOH?: No Does the pt have substance abuse?: No - Immunizations Immunizations are current?: Yes - POLST Patient has POLST: No PD ED PE NORMAL - Vitals Vital signs reviewed: Yes - General General: Alert and oriented X 3 - HEENT HEENT: Atraumatic - Neck Neck: Supple, no meningeal sign - Cardiac Cardiac: RRR, No murmur, No gallop, No rub - Respiratory Respiratory: No respiratory distress, Clear bilaterally - Derm Derm: Normal color - Extremities Extremities: No deformity - Neuro Neuro: Alert and oriented X 3 Eye Opening: Spontaneous Motor: Obeys Commands Verbal: Oriented GCS Score: 15 - Free text exam Free text exam: Laceration 1 cm in size to distal index finger of left finger. No signs of contamination minimal bleeding on arrival. Good capillary refill intact sensation intact and full range of motion at DIP PIP and MCP joint. No obvious deformity. Results - Vitals Vitals: Vital Signs - 24 hr 06/22/24 06/22/24 13:36 15:45 Temperature 36.4 C L 36.8 C Heart Rate 83 74 Respiratory 17 16 Rate Blood Pressure 138/104 H 124/68 O2 Saturation 100 98 Oxygen O2 Source Room air Procedures - Laceration (location) left index finger Length in cm: 1 Wound type: Linear Neurovascular status: Sensory intact, Motor intact, Vascular intact Tendon involvement: Tendon intact Anesthesia: Lidocaine 2% Wound preparation: Irrigated copiously NS Skin layer closure: Nylon, Sutures - enter # (2) Other: Patient tolerated well, No complications, Dressing applied, Tetanus UTD PD Medical Decision Making - ED course Complexity details: reviewed old records, reviewed results, re-evaluated patient ED course: Patient is a 38-year-old female presenting to the emergency department with laceration to distal tip of left index finger. Minimal bleeding on arrival laceration is 1 cm in size. Patient has full range of motion at DIP PIP and MCP joints and good sensation with good capillary refill intact. Patient had 2 sutures placed in left index finger. She tolerated this well see procedure note above. Patient wound was wrapped with Telfa and gauze here in emergency department. Her tetanus was up-to-date already with last tetanus in 2020. Patient instructed to keep wound clean dry and to monitor for any redness swelling warmth fevers or discharge from the wound. She was instructed to return with any of the symptoms. Patient agreeable with this plan she will have sutures removed in 14 days. Patient will follow-up with her PCP in 2 weeks for a wound recheck. Departure - Departure Disposition: 01 Home, Self Care Clinical Impression: Laceration of left index finger Condition: Good Instructions: ED Laceration All Comments: You were seen here in the emergency department for laceration to your left index finger your workup here in the emergency department you received 2 sutures here. You should Watch for any redness, swelling, warmth, fevers, discharge. Keep wound clean dry you can change dressing in 24 hours. Please follow-up with your PCP in 14 days to have sutures removed.Your tetanus was up-to-date and did not need updated here. Forms: PCP List Discharge Date/Time: 06/22/24 15:45
[2024-06-22] MEDS: lidocaine 1% 20 ML MDV SUBQ ONE (15:01)
[2024-06-22 15:51] VITALS: BP 124/68; O2SAT 98
== END 2024-06-22 15:45 | disposition home or self-care (01) ==
LOC: ED 13:34
DX: S61.211A Laceration without foreign body of left index finger without damage to nail, initial encounter (principal); W27.2XXA Contact with scissors, initial encounter
CPT/HCPCS: 12001; 99283

== ENCOUNTER 2025-09-19 16:55 | Observation (INO) ==
--- OUTSIDE RECORDS SUMMARY | 2025-09-19 17:19 | EXTERNAL MEDICAL SUMMARY RPT | Continuity of Care Document ---
Author Organization [facility] Address [address] [place] [id number] Phone Allergies and Intolerances date description facility reaction severity 2025-04-24 10:00 [id number]^pollen extracts^^pollen extracts^^allergy.id [facility] Sneezing, watery eyes (no severity) 2025-06-30 10:00 [id number]^pollen extracts^^pollen extracts^^allergy.id [facility] Sneezing, watery eyes (no severity) 2025-07-19 10:00 [id number]^pollen extracts^^pollen extracts^^allergy.id [facility] Sneezing, watery eyes (no severity) 2025-08-16 10:00 [id number]^pollen extracts^^pollen extracts^^allergy.id [facility] Sneezing, watery eyes (no severity) 2025-09-13 10:00 [id number]^pollen extracts^^pollen extracts^^allergy.id [facility] Sneezing, watery eyes (no severity) 2025-09-19 10:00 [id number]^pollen extracts^^pollen extracts^^allergy.id [facility] Sneezing, watery eyes (no severity) 2025-04-24 10:00 chicken feathers^chicken feathers [facility] Hives (no severity) 2025-06-30 10:00 chicken feathers^chicken feathers [facility] Hives (no severity) 2025-07-19 10:00 chicken feathers^chicken feathers [facility] Hives (no severity) 2025-08-16 10:00 chicken feathers^chicken feathers [facility] Hives (no severity) 2025-09-13 10:00 chicken feathers^chicken feathers [facility] Hives (no severity) 2025-09-19 10:00 chicken feathers^chicken feathers [facility] Hives (no severity) Problems date description facility 2025-06-30 11:38 Encounter for other specified a ntenatal screening [facility] 2025-06-30 12:12 Encounter for immunization [facility] 2025-06-30 12:12 Encounter for other specified [facility] 06:53 Encounter for other specified a ntenatal screening [facility] 2025-07-03 07:08 Encounter for other specified a ntenatal screening [facility] 2025-07-05 06:59 Encounter for superv ision of other normal , unspecified trimester [facility] 2025-07-05 12:36 Pre-existing essenti al hypertension complicating , second trimester [facility] 2025-07-05 12:36 Encounter for immunization [facility] 2025-07-05 12:36 Encounter for superv ision of other normal , unspecified trimester [facility] 2025-07-05 12:36 Encounter for other specified a ntenatal screening [facility] 2025-07-05 12:37 Supervision of elderly multigra brayden, second trimester [facility] 2025-07-05 12:37 Pre-existing essenti al hypertension complicating , second trimester [facility] 2025-07-05 12:37 Encounter for immunization [facility] 2025-07-05 12:37 Encounter for other specified a ntenatal screening [facility] 2025-07-05 12:37 17 weeks gestation of [facility] 2025-07-05 12:38 Encounter for immunization [facility] 2025-07-05 12:38 Encounter for superv ision of other normal , unspecified trimester [facility] 2025-07-05 12:38 Encounter for other specified a ntenatal screening [facility] 2025-07-17 14:57 Encounter for superv ision of other normal , unspecified trimester [facility] 2025-07-19 14:00 Encounter for superv ision of other normal , unspecified trimester [facility] 2025-07-21 08:33 Pre-existing essenti al hypertension complicating , second trimester [facility] 2025-07-21 08:34 Supervision of elderly fer owen, second trimester [facility] 2025-07-21 08:34 Pre-existing essenti al hypertension complicating , second trimester [facility] 2025-07-21 08:34 20 weeks gestation of [facility] 2025-07-31 09:20 Encounter for superv ision of other normal , unspecified trimester [facility] 2025-07-31 11:45 Pruritus, unspecified [facility] 2025-07-31 12:08 Pruritus, unspecified [facility] 2025-07-31 12:08 Encounter for other specified a ntenatal screening [facility] 2025-07-31 12:46 Pruritus, unspecified [facility] 2025-08-01 00:02 Encounter for superv ision of other normal , unspecified trimester [facility] 2025-08-01 00:05 Pruritus, unspecified [facility] 2025-08-01 00:05 Encounter for other specified a ntenatal screening [facility] 2025-08-01 09:36 Pruritus, unspecified [facility] 2025-08-01 09:36 Encounter for superv ision of other normal , unspecified trimester [facility] 2025-08-01 09:36 Encounter for other specified a ntenatal screening [facility] 2025-08-02 09:32 Diseases of the skin and subcutaneous tissue complicating , second trimester [facility] 2025-08-02 09:33 Pruritus, unspecified [facility] 2025-08-04 08:21 Encounter for superv ision of other normal , unspecified trimester [facility] 2025-08-15 09:18 Other specified noninflammatory disorders of vagina [facility] 2025-08-15 09:18 Other specified preg may related conditions, second trimester [facility] 2025-08-21 12:47 Supervision of elderly fer owen, second trimester [facility] 2025-08-21 12:47 Pre-existing essenti al hypertension complicating , second trimester [facility] 2025-08-21 12:47 Abnormal glucose complicating p regnancy [facility] 2025-08-21 12:47 Encounter for superv ision of other normal , unspecified trimester [facility] 2025-08-21 12:47 Encounter for superv ision of normal , unspecified, unspecified trimester [facility] 2025-08-21 12:47 24 weeks gestation of [facility] 2025-08-23 10:30 Other specified dise ases and conditions complicating [facility] 2025-08-23 10:38 Other specified noninflammatory disorders of vagina [facility] 2025-08-23 10:38 Other specified dise ases and conditions complicating [facility] 2025-08-29 08:19 Supervision of elderly fer owen, second trimester [facility] 2025-08-29 08:19 Pre-existing essenti al hypertension complicating , second trimester [facility] 2025-08-29 08:19 Abnormal glucose complicating p regnancy [facility] 2025-08-29 08:19 Encounter for superv ision of other normal , unspecified trimester [facility] 2025-08-29 08:19 Encounter for superv ision of normal , unspecified, unspecified trimester [facility] 2025-08-29 08:19 24 weeks gestation of [facility] 2025-09-06 12:22 Abnormal glucose complicating p regnancy [facility] 2025-09-06 12:22 Encounter for superv ision of other normal , unspecified trimester [facility] 2025-09-06 12:22 Encounter for superv ision of normal , unspecified, unspecified trimester [facility] 2025-09-07 08:24 Abnormal glucose complicating p regnancy [facility] 2025-09-07 08:24 Encounter for superv ision of other normal , unspecified trimester [facility] 2025-09-07 08:24 Encounter for superv ision of normal , unspecified, unspecified trimester [facility] 2025-09-08 00:05 Abnormal glucose complicating p regnancy [facility] 2025-09-08 00:05 Encounter for superv ision of other normal , unspecified trimester [facility] 2025-09-08 00:05 Encounter for superv ision of normal , unspecified, unspecified trimester [facility] 2025-09-11 06:25 Abnormal glucose complicating p regnancy [facility] 2025-09-11 14:52 Abnormal glucose complicating p regnancy [facility] 2025-09-13 21:06 Unspecified maternal hypertension, unspecified trimester [facility] 2025-09-13 21:06 Gestational diabetes mellitus in , unspecified control [facility] 2025-09-13 21:06 Encounter for immunization [facility] 2025-09-14 09:00 Encounter for superv ision of other normal , unspecified trimester [facility] 2025-09-15 12:40 Unspecified maternal hypertensi on, third trimester [facility] 2025-09-15 12:40 Unspecified maternal hypertension, unspecified trimester [facility] 2025-09-15 12:40 Gestational diabetes mellitus in , diet controlled [facility] 2025-09-15 12:40 Gestational diabetes mellitus in , unspecified control [facility] 2025-09-15 12:40 Anemia complicating , unspecified trimester [facility] 2025-09-15 12:40 Encounter for immunization [facility] 2025-09-15 12:41 Supervision of elderly fer owen, third trimester [facility] 2025-09-15 12:41 Pre-existing essenti al hypertension complicating , third trimester [facility] 2025-09-15 12:41 Gestational diabetes mellitus in , unspecified control [facility] 2025-09-15 12:41 Anemia complicating , third trimester [facility] 2025-09-15 12:41 Encounter for immunization [facility] 2025-09-15 12:41 28 weeks gestation of [facility] 2025-09-15 12:42 Unspecified maternal hypertensi on, third trimester [facility] 2025-09-15 12:42 Unspecified maternal hypertension, unspecified trimester [facility] 2025-09-15 12:42 Gestational diabetes mellitus in , diet controlled [facility] 2025-09-15 12:42 Gestational diabetes mellitus in , unspecified control [facility] 2025-09-15 12:42 Anemia complicating , unspecified trimester [facility] 2025-09-15 12:42 Encounter for immunization [facility] Results/Labs test date facility value unit notes Result panel 1 TEST RESULTS 2025-07-31 12:14 [facility] *Screen Negative* (missing) (missing) BILIRUBIN,TOTAL 2025-07-31 12:14 [facility] 0.3 mg/dl As of April 2023 testing method has changed, this may include reference ranges. CREATININE 2025-07-31 12:14 [facility] 0.5 mg/dl As of April 2023 testing method has changed, this may include reference ranges. ALBUMIN/GLOBULIN RATIO 2025-07-31 12:14 [facility] 1.3 (missing) (missing) AST ASPARTATE AMINOTRANSFERASE 2025-07-31 12:14 [facility] 10 iu/l As of April 2023 testing method has changed, this may include reference ranges. BUN - BLOOD UREA NITROGEN 2025-07-31 12:14 [facility] 10 mg/dl As of April 2023 testing method has changed, this may include reference ranges. CHLORIDE 2025-07-31 12:14 [facility] 106 mmol/l As of April 2023 testing method has changed, this may include reference ranges. SODIUM 2025-07-31 12:14 [facility] 134 mmol/l (missing) GFR - MDRD 2025-07-31 12:14 [facility] 137 (missing) The IDMS-traceable MDRD Study Equation has been validated extensively in and populations between the ages of 18 and 70 with impaired kidney function (eGFR < 60 mL/min/1.73m2) and has shown good performance for patients with all common causes of kidney disease. Although this equation has not been validated for patients older than 70, an MDRD-derived eGFR may still be a useful tool for providers caring for patients older than 70. References: http://www.nkdep.n ih.gov/lab-evaluat ion/gfr/creatinine -stand ardization, last updated December 2011. GEST. AGE ON COLLECTION DATE 2025-07-31 12:14 [facility] 17.3 weeks (missing) WEIGHT 2025-07-31 12:14 [facility] 193 lbs (missing) AFP MOM 2025-07-31 12:14 [facility] 2.02 (missing) (missing) GLOBULIN 2025-07-31 12:14 [facility] 2.9 g/dl (missing) CARBON DIOXIDE - CO2 2025-07-31 12:14 [facility] 22 mmol/l As of April 2023 testing method has changed, this may include reference ranges. ALBUMIN 2025-07-31 12:14 [facility] 3.8 g/dl As of April 2023 testing method has changed, this may include reference ranges. POTASSIUM 2025-07-31 12:14 [facility] 3.9 mmol/l As of April 2023 testing method has changed, this may include reference ranges. BILE ACIDS 2025-07-31 12:14 [facility] 4.1 umol/l Performed at: - [facility] [address], [place], [place] [id number] Dry Box Operator: Deangelo Zapata MD, Phone: [phone] MATERNAL AGE AT [place] 2025-07-31 12:14 [facility] [age] yr (missing) ALKALINE PHOSPHATASE 2025-07-31 12:14 [facility] 59 iu/l As of April 2023 testing method has changed, this may include reference ranges. ANION GAP 2025-07-31 12:14 [facility] 6.0 (missing) (missing) TOTAL PROTEIN 2025-07-31 12:14 [facility] 6.7 g/dl As of April 2023 testing method has changed, this may include reference ranges. AFP VALUE 2025-07-31 12:14 [facility] 67.1 ng/ml (missing) OPEN SPINA BIFIDA RISK 1 IN 2025-07-31 12:14 [facility] 771 (missing) (missing) ALT ALANINE AMINOTRANSFERASE 2025-07-31 12:14 [facility] 9 iu/l As of April 2023 testing method has changed, this may include reference ranges. CALCIUM 2025-07-31 12:14 [facility] 9.2 mg/dl As of April 2023 testing method has changed, this may include reference ranges. GLUCOSE 2025-07-31 12:14 [facility] 96 mg/dl As of April 2023 testing method has changed, this may include reference ranges. RACE 2025-07-31 12:14 [facility] (missing) (missing) INTERPRETATION 2025-07-31 12:14 [facility] Comment (missing) Interpretation: Screen Negative This result is screen negative for OSB. The AFP MoM calculated is based on the gestational age provided. MS-AFP can identify up to 80% of open neural tube defects. Closed neural tube defects and some open defects may not be detected by this test. This test does not screen for Down Syndrome or Trisomy 18. If screening for Down Syndrome or Trisomy 18 is desired, contact [facility] to discuss available options. The [employer] recommends amniocentesis be offered to women age 35 and older. COMMENTS 2025-07-31 12:14 [facility] Comment (missing) Quynh Salcedo, Ph.D., [facility] Director References: Available Upon Request. Multiples Of Median Cutoffs For AFP Elevations Franco 2.5 Black 2.8 IDD 2.0 Twins 4.5 Abbreviation Definitions IDD - Insulin Dep Diabetes OSBR - Open Spina Bifida Risk For further inquiries contact [facility] at [phone]. This test was developed and its performance characteristics determined by [facility]. It has not been cleared or approved by the Food and Drug Administration. Performed at: [facility] [address] [place], [place] [id number] Dry Box Operator: Dereje Enrique [facility], Phone: [phone] INSULIN DEP DIABETES 2025-07-31 12:14 [facility] No (missing) (missing) MULTIPLE GESTATION 2025-07-31 12:14 [facility] No (missing) (missing) RESULTS 2025-07-31 12:14 [facility] Report (missing) N [id number] N ULTRASOUND 17.2 2 17 N 1 N 193 N N N N N GESTAT. AGE METHOD 2025-07-31 12:14 [facility] Ultrasound (missing) 17.3 on 07/31/2025 Recalculations are not recommended when gestational dating by LMP and ultrasound are within 10 days. Result panel 2 RUPTURE OF MEMBRANES PLUS 2025-08-11 17:00 [facility] NEGATIVE (missing) (missing) BACTERIAL VAGINOSIS DNA 2025-08-11 17:00 [facility] NEGATIVE (missing) Detection of marker combinations related to normal vaginal james. JELENA GLABRATA DNA 2025-08-11 17:00 [facility] NEGATIVE (missing) No Jelena glabrata Detected JELENA GROUP DNA 2025-08-11 17:00 [facility] NEGATIVE (missing) No Jelena group Detected (Jelena albicans and/or Jelena tropicalis and/or Jelena parapsilosis and/or Jelena dubliniensis) JELENA KRUSEI DNA 2025-08-11 17:00 [facility] NEGATIVE (missing) No Jelena krusei Detected TRICHOMONAS VAGINALIS DNA 2025-08-11 17:00 [facility] NEGATIVE (missing) No Trichomonas vaginalis Detected Result panel 3 GLUCOSE TOLERANCE 3HR 2025-09-07 08:35 [facility] (missing) (missing) GLU FAST 90 mg/dL Col Time:0835 GLU 1H 208 mg/dL Col Time:0936 GLU 2H 219 mg/dL Col Time:1040 GLU 3H 107 mg/dL Col Time:1135 DOSE 100 g Col Time:0835 Glucose Concentration Guidelines Fasting <95 mg/dL 1 hr post challenge <180 mg/dL 2 hr post challenge <155 mg/dL 3 hr post challenge <140 mg/dL Glucose concentration greater than or equal to these valuesat TWO or more time points is a positive test. Reference: [facility] HGB - HEMOGLOBIN 2025-09-07 08:35 [facility] 10.4 g/dl (missing) WHITE BLOOD COUNT 2025-09-07 08:35 [facility] 10.5 x10 3/ul (missing) RED CELL DISTRIBUTION WIDTH 2025-09-07 08:35 [facility] 14.6 % (missing) PLT - PLATELET COUNT 2025-09-07 08:35 [facility] 201 10 3/ul (missing) MEAN CORPUSCULAR HEMOGLOBIN 2025-09-07 08:35 [facility] 29.8 pg (missing) RED BLOOD COUNT 2025-09-07 08:35 [facility] 3.49 10 6/ul (missing) HCT - HEMATOCRIT 2025-09-07 08:35 [facility] 31.9 % (missing) [facility]PUS[facility] HGB CONC 2025-09-07 08:35 [facility] 32.6 g/dl (missing) MEAN PLATELET VOLUME 2025-09-07 08:35 [facility] 9.2 fl (missing) MEAN CORPUSCULAR VOLUME 2025-09-07 08:35 [facility] 91.4 fl (missing) RPR 2025-09-07 08:35 [facility] Non Reactive (missing) Performed at: - [facility] [address], [place], [place] [id number] Dry Box Operator: Deangelo Zapata MD, Phone: [phone] Social History date description facility
--- NOTE | 2025-09-19 17:27 | ED Physician Documentation ---
History of Present Illness Stated complaint Stated Complaint: DIZZY, SEEING SPOTS Chief complaint Chief Complaint: General History obtained from History obtained from: Patient History of Present Illness Timing: Prior to arrival Additonal information Additional information: Patient is a 39-year-old female presenting to the emergency department with concerns for dizziness spots in her vision and nausea and vomiting. Patient notes symptoms started earlier today with increased dizziness feeling lightheaded and room spinning. She notes this afternoon her symptoms progressively worsened and she began to have room spinning and nausea and vomiting. She has a history of gestational diabetes and is on metformin as well as a history of gestational hypertension tension she is on labetalol 100 mg twice a day which she has been compliant with. Patient is G8, P4 approximately 29 weeks . She denies any shortness of breath or chest pain associated with her symptoms. Meds/Allgy Home Medications Ambulatory Orders Medication Instructions Recorded Confirmed metformin 500 mg tablet 500 mg PO BID 04/06/1509/13 lamotrigine 100 mg tablet mg PO 04/08/25 09/13/25 lisdexamfetamine 60 mg capsule mg PO 04/08/25 09/13/25 (Vyvanse) sertraline 25 mg tablet mg PO 04/08/25 09/13/25 docosahexaenoic acid 200 mg mg PO 05/22/25 09/13/25 capsule ( DHA) aspirin 81 mg tablet,delayed 81 mg PO QDAY preeclampsi a 05/25/25 09/13/25 release prevention #180 tabs labetalol 100 mg tablet 100 mg PO BID #60 tabs 08/2909/13/25 blood sugar diagnostic (FreeStyle #100 ea 09/10/2507/29 Lite Strips) blood-glucose meter (FreeStyle #1 ea 09/10/25 09/13/25 Lite Meter kit) lancets 28 gauge (FreeStyle #100 ea 09/10/25 09/13/25 Lancets) ferrous sulfate 325 mg (65 mg 325 mg PO Q OTHER DAY #9 0 tabs 09/13/25 09/13/25 iron) tablet Allergies Allergies Allergy/AdvReac Type Severity Reaction Status Date / Time pollen extracts Allergy Mild Sneezing, Verified 09/19/25 17:03 watery eyes chicken feathers Allergy Hives Uncoded 09/19/25 17:03 PFSH Active Problems All Active Problems (Updated 09/19/25 @ 21:11 by Jaky Fong PA-C) Nausea & vomiting (Acute) Light-headedness (Acute) Anemia complicating , third trimester (Acute) Hypertension affecting (Acute) Anemia affecting , antepartum (Acute) Gestational diabetes (Acute) Pruritus (Acute) Supervision of other normal (Acute) Encounter for other specified screening (Acute) Anxiety and depression (Acute) ADHD (Acute) Chronic hypertension (Acute) MAYET (obstructive sleep apnea) (Acute) PCOS (polycystic ovarian syndrome) (Acute) Positive test (Acute) Hypertension (Acute) Recurrent vaginitis (Acute) Eustachian tube dysfunction (Acute) Surgical History Surgical History (Updated 04/24/25 @ 15:18 by Rain Stanley RN) Status post correction of deviated nasal septum Family History Family History (Updated 04/24/25 @ 15:20 by Rain Stanley RN) Mother Allergies Asthma Breast cancer Heart attack High blood pressure Father Skin cancer Diabetes Heart attack High blood pressure Social History Social History (Updated 07/31/25 @ 11:47 by Yvonne Pelayo LPN) Smoking Status: Never smoker Second hand tobacco smoke exposure: No Do you dip or chew tobacco?: No Do you vape?: No Living arrangement: At home Do you feel safe in your home environment?: Yes History of physical, verbal, emotional, or financial abuse?: No ETOH Use: None Substance Use: denies use Are you sexually active?: Yes 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 [employer] Patient has POLST: No Exam Exam Vital Signs: Vital Signs x48h Temp Pulse Pulse Resp BP BP BP 09/19/25 20:41 66 16 116/51 L 09/19/25 20:26 09/19/25 20:00 115/45 L 09/19/25 19:30 69 135/81 H 09/19/25 19:02 80 20 151/85 H 09/19/25 18:33 80 20 126/69 09/19/25 18:32 18 09/19/25 18:02 79 20 154/84 H 09/19/25 17:00 36.7 C 86 16 145/72 H BP Pulse Ox 09/19/25 20:41 95 09/19/25 20:26 113/59 L 09/19/25 20:00 09/19/25 19:30 97 09/19/25 19:02 98 09/19/25 18:33 97 09/19/25 18:32 97 09/19/25 18:02 98 09/19/25 17:00 97 Constitutional Patient appears pale and slightly diaphoretic HENMT normocephalic and head/scalp atraumatic Eyes PERRL and EOMs intact bilaterally Neck/C-Spine visual inspection normal Lymph no lymphadenopathy noted Chest inspection of chest normal Respiratory breath sounds equal bilaterally, normal respiratory effort and clear to auscultation bilaterally Cardiovascular normal heart rate noted, regular rhythm noted, no gallop and no rub Gastrointestinal Gravid uterus Results Vitals Vitals: Vital Signs - 24 hr 09/19/25 17:00 09/19/25 18:02 09/19/25 18:32 Temperature 36.7 C Temperature Source Temporal Artery Scan Pulse Rate 86 79 Pulse Rate [Monitoring electrodes] Respiratory Rate 16 20 18 Blood Pressure 145/72 H 154/84 H Blood Pressure [Right] Blood Pressure [Sitting] Blood Pressure [Standing] O2 Saturation 97 98 97 O2 Source Room air Room air Room air Sedation scale Pain Intensity 0 0 09/19/25 18:33 09/19/25 19:02 09/19/25 19:30 Temperature Temperature Source Pulse Rate Pulse Rate [Monitoring electrodes] 80 80 69 Respiratory Rate 20 20 Blood Pressure Blood Pressure [Right] 126/69 151/85 H 135/81 H Blood Pressure [Sitting] Blood Pressure [Standing] O2 Saturation 97 98 97 O2 Source Room air Room air Room air Sedation scale 0-Fully awake Pain Intensity 0 09/19/25 20:00 09/19/25 20:26 09/19/25 20:41 Temperature Temperature Source Pulse Rate 66 Pulse Rate [Monitoring electrodes] Respiratory Rate 16 Blood Pressure 116/51 L Blood Pressure [Right] Blood Pressure [Sitting] 115/45 L Blood Pressure [Standing] 113/59 L O2 Saturation 95 O2 Source Room air Sedation scale Pain Intensity 0 Oxygen O2 Source Room air Labs Labs: Laboratory Tests 09/19/25 09/19/25 17:15 17:30 WBC 11.0 H RBC 3.50 L Hgb 10.5 L Hct 31.8 L MCV 90.9 MCH 30.0 MCHC 33.0 RDW 15.2 H Plt Count 213 MPV 9.6 Neut # (Auto) 8.2 H Lymph # (Auto) 2.0 [place] # (Auto) 0.7 Eos # (Auto) 0.1 Baso # (Auto) 0.0 Absolute Nucleated RBC 0.00 Nucleated RBC % 0.0 Sodium 134 L Potassium 4.0 Chloride 105 Carbon Dioxide 20 L Anion Gap 9.0 BUN 14 Creatinine 0.5 L Estimated GFR (MDRD) 137 Glucose 90 Calcium 9.6 Magnesium 1.9 Total Bilirubin 0.4 AST 10 ALT 10 Alkaline Phosphatase 65 Lactate Dehydrogenase 93 L Total Protein 6.7 Albumin 3.9 Globulin 2.8 Albumin/Globulin Ratio 1.4 TSH 0.77 Urine Color Yellow Urine Clarity Clear Urine pH 5.5 Ur Specific [place] 1.010 Urine Protein Negative Urine Glucose (UA) Negative Urine Ketones Negative Urine Occult Blood Negative Urine Nitrite Negative Urine Bilirubin Negative Urine Urobilinogen 0.2 (NORMAL) Ur Leukocyte Esterase Negative Ur Microscopic Review NOT INDICATED Urine Culture Comments NOT INDICATED Urine Creatinine 16.4 Ur Total Protein Timed < 4 Protein/Creatinin Ratio TNP PD Medical Decision Making ED course Complexity details: reviewed old records and reviewed results ED course: Patient is a 39-year-old female G8, P4 presenting to the emergency department with history of hypertension and gestational diabetes. She is on labetalol and metformin for both. She recently had iron started for anemia affecting third trimester . This afternoon patient developed some seeing spots and room spinning. She had some episodes of nausea and vomiting that started about an hour prior to arrival. She has no fevers no chills no chest pain or shortness of breath no abdominal pain. She can feel her baby moving that trouble here in the ED. She has been monitoring her blood pressures at home closely and they have been stable. She has no vaginal bleeding. No cramping. She has been on oral iron which she has been compliant with at home. She notes her last dose of labetalol was this morning. Patient slightly hypertensive on arrival with a blood pressure of 145/72, repeat blood pressure was 154/84 here in the ED patient was reevaluated still having some lightheadedness. I reached out to Dr. Lentz given elevated blood pressure readings in third trimester . Dr. Lentz did come down to evaluate patient recommended holding on IV labetalol at this time but we can give patient oral labetalol 200 mg to bring her blood pressure down here in the ED. Will begin preeclampsia workup. Patient given some light fluids to help with her lightheadedness symptoms. Labs are reassuring mild leukocytosis at 11.0 but this appears stable for patient's third term trimester hemoglobin of 10.5 however again this is stable for her recent history of . Mild hyponatremia at 134 GFR of 137 and TSH well within normal range urine is negative but urine creatinine to protein ratio was also negative. Blood pressure downtrended very well here in the ED. Patient was given a dose of Zofran as she had an episode of vomiting here in the ED after receiving some fluid. I reevaluated patient and she remains persistently lightheaded. NST testing was performed by OB nursing staff and it was well within normal range. I updated patient On reassuring labs and imaging she is still feeling lightheaded here in the ED she does not feel comfortable getting up to stand. I reached out to Dr. Lentz we will do another half a liter of fluids. On reevaluation patient still not feeling well she would like admission and stay overnight. I reached out to Dr. Lentz who is agreeable and will monitor her o vernight despite reassuring workup pending respiratory PCR at this time. Discharge Plan Discharge Patient Disposition: ED Place in Observation Condition: Stable Clinical Impression: Anemia complicating , third trimester, Light-headedness, Nausea & vomiting Prescriptions: No Action labetalol 100 mg tablet 100 mg PO BID Qty: 60 2RF (DME) FreeStyle Lite Strips Strip See Rx Instructions .MEDSUPPLY Qty: 100 0RF Rx Instructions: Check blood sugar fasting in the morning and then 2 hours after breakfast, lunch, and dinner. Keep log of values. (DME) blood-glucose meter [FreeStyle Lite Meter] Kit See Rx Instructions .MEDSUPPLY Qty: 1 0RF Rx Instructions: Check blood sugar fasting in the morning and then 2 hours after breakfast, lunch, and dinner. Keep log of values. (DME) lancets [FreeStyle Lancets] 28 gauge misc See Rx Instructions .MEDSUPPLY Qty: 100 0RF Rx Instructions: Check blood sugar fasting in the morning and then 2 hours after breakfast, lunch, and dinner. Keep log of values. metformin 500 MG tablet 500 mg PO BID lisdexamfetamine [Vyvanse] 60 mg capsule PO sertraline 25 mg tablet PO lamotrigine 100 mg tablet PO ferrous sulfate 325 mg (65 mg iron) tablet 325 mg PO Q OTHER DAY Qty: 90 2RF DHA 200 mg capsule PO aspirin 81 mg tablet,delayed release (DR/EC) 81 mg PO QDAY Qty: 180 0RF Print Language: Slovenian Stand Alone Forms: PCP List, SBIRT
[2025-09-19 17:45] LABS: HCT - HEMATOCRIT 31.8 % (37.0-47.0); HGB - HEMOGLOBIN 10.5 g/dL (12.0-16.0); MEAN PLATELET VOLUME 9.6 fL (7.9-10.8); NRBC ABSOLUTE COUNT (AUTO) 0.00 x10^3/uL; NUCLEATED RED BLOOD CELLS AUTO 0.0 /100WBC; PLT - PLATELET COUNT 213 10^3/uL (130-450); RED CELL DISTRIBUTION WIDTH 15.2 % (12.0-15.0)
[2025-09-19 18:12] LABS: GLUCOSE, URINE (UA) Negative (NEGATIVE); KETONES,URINE (UA) Negative (NEGATIVE); OCCULT BLOOD,URINE Negative (NEGATIVE)
[2025-09-19 18:13] LABS: ALT ALANINE AMINOTRANSFERASE 10.0 IU/L (10-60); AST ASPARTATE AMINOTRANSFERASE 10.0 IU/L (10-42); BUN - BLOOD UREA NITROGEN 14.0 mg/dL (6-20); CARBON DIOXIDE - CO2 20.0 mmol/L (21-32); CREATININE 0.5 mg/dL (0.6-1.3); GFR - MDRD 137.0 (>89)
[2025-09-19] MEDS: LABETALOL 100 MG TABLET PO STA (18:24)
[2025-09-19] MEDS: LACTATED RINGERS 500 ML IV STA ×2 (18:25→20:43)
[2025-09-19 18:28] LABS: TOTAL PROTEIN,URINE TIMED < 4 mg/dL
--- NOTE | 2025-09-19 19:11 | PROVIDER PROGRESS NOTE ---
HPI Chief Complaint: Other (Dizziness and visual changes) Current : Patient is a 39 yo at 28+6 wks seen in [facility] ER for acute dizziness with visual changes today. She was feeling well this morning but has had progressive dizziness as the day has progressed. She sees spots/floaters during the episod es of dizziness. The symptoms are positional and occur when sitting/standing up and when bending over. She has also had intermittent nausea with vomiting due to the sx. She denies change in her usual activity or habits. She denies headache or abdominal pain. Baby is active, and she denies contractions, leakage of fluid, or bleeding. Review of her glucose log at the bedside notes predominantly normal levels with no episodes of hypoglycemia. She does note that she has started feeling better since initiation of iron supplement. She feels best on the day she takes the med, and today was the "off" day. course: LMP:02/24/2025 [place] by LMP:12/01/2025 US: 04/29/25 8w3d [place] 12/06/24 Final [place]: 12/06/25 by 8 wk US issues: - cHTN - was on lisinopril prior to - >labetalol 200mg BID-> decreased to 100mg BID at 20wk visit due to low BPs. Completed baseline CMP and pr:cr. Delivery between 37-39wks depending on BP control or if other issues arise. Would prefer ultrasounds at . [ ] Growth US q 4-6 wk and testing starting at 32 wk. - GDMA1b ased on abnormal 3' GTT at 26 wks; h/o A1DM in 3rd , PCOS, on metformin 500mg BID. Early A1C 4.8. - H/o ADHD, anxiety/depression - Currently on sertraline and vyvanse. Continue care with [facility] - H/o genital HSV - [] Suppression therapy at 36wk - AMA - Anemia [ ] Iron started 09/13 [ ] Repeat CBC 4 wks after iron start; consider IV iron if not improving Pre- Weight:178lb BMI:34.9 Blood type: A+ Antibody Screen: neg CBC: H/H/PLT 11.2/34.5 261 RUB:immune VZV: immune HBsAg:neg HepC: NR RPR: NR HIV:NR Flu:06/30 Covid:declines PAP:due GC/CT:05/22/25 neg HSV:yes, suppression at 36wk Genetic testing:interested Early Glucola: A1C 4.8 FAS: Placenta:fundal without previa Cord:3VC MARY:WNL EFW:453g 49%ile 50gm OGCT: declined, did 3hr 3HR GTT: 90/208/219/107 TDAP: 09/13/2025 Breast Pump: 09/13/2025 RSV: NR Antibody screen: CBC: 10.4/. RPR: GBS: Delivery plan: MOD: PP BC: OB Visit Log Initial Weight: 81.012 kg Vital Signs Temperature 36.7 C 09/19/25 17:00 Pulse Rate 80 09/19/25 19:02 Respiratory Rate 20 09/19/25 19:02 Blood Pressure 151/85 H 09/19/25 19:02 O2 Saturation 98 09/19/25 19:02 BP's in ER: 145/72, 154/84, 126/89, 151/85 Exam Exam: General: Well-appearing, relaxing in ER gurney; no acute distress Lungs: Clear to auscultation with no wheezes or crackles Heart: Reg rate/rhythm Abd: Gravid, nontender Ext: DTRs 3+, brisk; trace edema; no clonus Procedures OB Procedure Performed: NST Diagnosis/Indication for NST: Other (Dizziness) NST Procedure: Start time 1748 End time 1911 Service Date of procedure: 09/19/25 Procedure Details: Baseline 130s Accels present (15 x 15) Decels absent Variability moderate Ctx absent Findings: Reactive/cat 1 NST Plan Plan: (1) Dizziness in , third trimester - Acute positional dizziness with visual changes. Sx resolve with rest. - ER course: preE labs obtained and neg/nml; urine PCR low - Bedside NST obtained for reassurance of status; NST reactive/cat 1 - BP's elevated into mild to moderate range; no severe BPs; nighttime labetalol given at 200 mg PO dose - IV hydration 500 ml LR given - May discharge home after hydration completed; recommend resting at home tonight and avoiding prolonged standing/walking - Cont preE precautions - Cont with glucose and BP monitoring at home. - Check AM BP; if elevated compared to usual, cont Labetalol at 200 mg bid dosing - F/u 08/22 for next OB visit as previously scheduled (or return sooner prn) (2) Chronic HTN in , third trimester (3) GDM A1 in third trimester (4) at 28 wks Anemia Results Results HEM.RESAN: WBC, (4.8-10.8) 11.0 x10^3/uL H RBC, (4.20-5.40) 3.50 10^6/uL L Hgb, (12.0-16.0) 10.5 g/dL L Hct, (37.0-47.0) 31.8 % L MCV, (81.0-99.0) 90.9 fL MCH, (27.0-31.0) 30.0 pg MCHC, (32.0-36.0) 33.0 g/dL RDW, (12.0-15.0) 15.2 % H Plt Count, (130-450) 213 10^3/uL MPV, (7.9-10.8) 9.6 fL Lactate Dehydrogenase, (140-271) 93 IU/L L TSH, (0.34-5.60) 0.77 uIU/mL AST, (10-42) 10 IU/L ALT, (10-60) 10 IU/L Abdomen/Pelvis CT Pelvis US Metabolic Panel Results Results HEM.RESMP: Sodium, (135-145) 134 mmol/L L Today, 17:30 Potassium, (3.5-4.5) 4.0 mmol/L Today, 17:30 Chloride, (101-111) 105 mmol/L Today, 17:30 Carbon Dioxide, (21-32) 20 mmol/L L Today, 17:30 Anion Gap, (6-13) 9.0 Today, 17:30 Calcium, (8.5-10.3) 9.6 mg/dL Today, 17:30 Glucose, (74-104) 90 mg/dL Today, 17:30 BUN, (6-20) 14 mg/dL Today, 17:30 Creatinine, (0.6-1.3) 0.5 mg/dL L Today, 17:30 Total Protein, (6.4-8.9) 6.7 g/dL Today, 17:30 Albumin, (3.2-5.5) 3.9 g/dL Today, 17:30 Globulin, (2.1-4.2) 2.8 g/dL Today, 17:30 Albumin/Globulin Ratio, (1.0-2.2) 1.4 Today, 17:30 AST, (10-42) 10 IU/L Today, 17:30 ALT, (10-60) 10 IU/L Today, 17:30 Alkaline Phosphatase, (42-121) 65 IU/L Today, 17 :30 Total Bilirubin, (0.2-1.0) 0.4 mg/dL Today, 17:30 UA with Micro Results Results GEN.RESUA: Urine Color Yellow Urine Clarity, (CLEAR) Clear Ur Leukocyte Esterase, (NEGATIVE) Negative Urine Urobilinogen, (NORMAL) 0.2 (NORMAL) E.U./dL Urine Protein, (NEGATIVE) Negative mg/dL Urine pH, (5.0-7.5) 5.5 PH Ur Specific [place], (1.002-1.030) 1.010 Urine Ketones, (NEGATIVE) Negative mg/dL Urine Bilirubin, (NEGATIVE) Negative Urine Glucose (UA), (NEGATIVE) Negative mg/dL Urine WBC, (0-5) 11-25 /HPF H Urine RBC, (0-5) 0-5 /HPF Ur Squamous Epith Cells, (<= Few) MANY Squamous H Urine Bacteria, (None Seen) None Seen /HPF Urine Mucus Marked Strands
[2025-09-19] MEDS: ONDANSETRON 4 MG/2 ML VIAL IVP STA (19:46)
--- NOTE | 2025-09-19 21:54 | HISTORY & PHYSICAL EXAMINATION ---
Admit History Visit Reason Visit Reason: Other (Persistent dizziness) : 8 Parity: 4 Care: positive [facility] Complications This : positive Gestational diabetes, Chronic HTN and Other (ADHD, anxiety/depr, HSV, anemia) Smoking Status: Never smoker Other Maternal History Other Maternal History: Patient presented to [facility] ER this evening for progressive dizziness and nausea today. Eval in the ER notable for normal preE and other labs. She had intermittent elevated BP's (none severe range) and was given her PM labetalol dose at 200 mg. She was also given IV fluid bolus 1 L LR and Zofran. Despite fluids, she continues to have dizziness with standing. She sees some spots in her vision when the dizziness occurs but has had no other visual changes, headache, or persistent upper abdominal pain. She has had no ctx, leakage of fluid, or vaginal bleeding. Glucose levels have been in range. course: LMP:02/24/2025 [place] by LMP:12/01/2025 US: 04/29/25 8w3d [place] 12/06/24 Final [place]: 12/06/25 by 8 wk US issues: - cHTN - was on lisinopril prior to - >labetalol 200mg BID-> decreased to 100mg BID at 20wk visit due to low BPs. Completed baseline CMP and pr:cr. Delivery between 37-39wks depending on BP control or if other issues arise. Would prefer ultrasounds at . [ ] Growth US q 4-6 wk and testing starting at 32 wk. - GDMA1b ased on abnormal 3' GTT at 26 wks; h/o A1DM in 3rd , PCOS, on metformin 500mg BID. Early A1C 4.8. - H/o ADHD, anxiety/depression - Currently on sertraline and vyvanse. Continue care with [facility] - H/o genital HSV - [] Suppression therapy at 36wk - AMA - Anemia [ ] Iron started 09/13 [ ] Repeat CBC 4 wks after iron start; consider IV iron if not improving Pre- Weight:178lb BMI:34.9 Blood type: A+ Antibody Screen: neg CBC: H/H/PLT 11.2/34.5 261 RUB:immune VZV: immune HBsAg:neg HepC: NR RPR: NR HIV:NR Flu:06/30 Covid:declines PAP:due GC/CT:05/22/25 neg HSV:yes, suppression at 36wk Genetic testing:interested Early Glucola: A1C 4.8 FAS: Placenta:fundal without previa Cord:3VC MARY:WNL EFW:453g 49%ile 50gm OGCT: declined, did 3hr 3HR GTT: 90/208/219/107 TDAP: 09/13/2025 Breast Pump: 09/13/2025 RSV: NR Antibody screen: CBC: 10.4/./201 RPR: GBS: Delivery plan: MOD: PP BC: HPI Current : Vital Signs Temperature 36.7 C 09/19/25 17:00 Pulse Rate 66 09/19/25 20:41 Respiratory Rate 16 09/19/25 20:41 Blood Pressure 116/51 L 09/19/25 20:41 O2 Saturation 95 09/19/25 20:41 Meds/Allgy Home Medications Ambulatory Orders Medication Instructions Recorded Confirmed metformin 500 mg tablet 500 mg PO BID 04/06/1509/13 lamotrigine 100 mg tablet mg PO 04/08/25 09/13/25 lisdexamfetamine 60 mg capsule mg PO 04/08/25 09/13/25 (Vyvanse) sertraline 25 mg tablet mg PO 04/08/25 09/13/25 docosahexaenoic acid 200 mg mg PO 05/22/25 09/13/25 capsule ( DHA) aspirin 81 mg tablet,delayed 81 mg PO QDAY preeclampsi a 05/25/25 09/13/25 release prevention #180 tabs labetalol 100 mg tablet 100 mg PO BID #60 tabs 08/2909/13/25 blood sugar diagnostic (FreeStyle #100 ea 09/10/2507/29 Lite Strips) blood-glucose meter (FreeStyle #1 ea 09/10/25 09/13/25 Lite Meter kit) lancets 28 gauge (FreeStyle #100 ea 09/10/25 09/13/25 Lancets) ferrous sulfate 325 mg (65 mg 325 mg PO Q OTHER DAY #9 0 tabs 09/13/25 09/13/25 iron) tablet Allergies Allergies Allergy/AdvReac Type Severity Reaction Status Date / Time pollen extracts Allergy Mild Sneezing, Verified 09/19/25 17:03 watery eyes chicken feathers Allergy Hives Uncoded 09/19/25 17:03 PFS Active Problems All Active Problems (Updated 09/19/25 @ 21:11 by Jaky Fong PA-C) Nausea & vomiting (Acute) Light-headedness (Acute) Anemia complicating , third trimester (Acute) Hypertension affecting (Acute) Anemia affecting , antepartum (Acute) Gestational diabetes (Acute) Pruritus (Acute) Supervision of other normal (Acute) Encounter for other specified screening (Acute) Anxiety and depression (Acute) ADHD (Acute) Chronic hypertension (Acute) MAYTE (obstructive sleep apnea) (Acute) PCOS (polycystic ovarian syndrome) (Acute) Positive test (Acute) Hypertension (Acute) Recurrent vaginitis (Acute) Eustachian tube dysfunction (Acute) Surgical History Surgical History (Updated 04/24/25 @ 15:18 by Rain Stanley RN) Status post correction of deviated nasal septum Family History Family History (Updated 04/24/25 @ 15:20 by Rain Stanley RN) Mother Allergies Asthma Breast cancer Heart attack High blood pressure Father Skin cancer Diabetes Heart attack High blood pressure Social History Social History (Updated 07/31/25 @ 11:47 by Yvonne Pelayo LPN) Smoking Status: Never smoker Second hand tobacco smoke exposure: No Do you dip or chew tobacco?: No Do you vape?: No Living arrangement: At home Do you feel safe in your home environment?: Yes History of physical, verbal, emotional, or financial abuse?: No ETOH Use: None Substance Use: denies use Are you sexually active?: Yes 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 [employer] Patient has POLST: No Physical Abdominal Exam Vital Signs: Temp Pulse Resp BP Pulse Ox 36.7 C 66 16 116/51 L 95 09/19/25 17:00 09/19/25 20:41 09/19/25 20:41 09/19/25 20:41 09/19/25 20:41 General: Well-appearing, relaxing in ER rreno; no acute distress Lungs: Clear to auscultation with no wheezes or crackles Heart: Reg rate/rhythm Abd: Gravid, nontender Ext: DTRs 3+, brisk; trace edema; no clonus Contraction Frequency (min/apart): None Monitoring Heart Rate Baseline: 130s Strip Review: positive Category I Plan for Labor Plan For Labor I expect patient to be DC'd or transferred within 96 hours.: Yes Plan for Labor: (1) Dizziness in , third trimester - Acute positional dizziness with visual changes. Sx resolve with rest. - ER course: preE labs obtained and neg/nml; urine PCR low - Bedside NST obtained for reassurance of status; NST reactive/cat 1 - BP's elevated into mild to moderate range; no severe BPs; nighttime labetalol given at 200 mg PO dose - IV hydration 500 ml LR given - Admit to Observation overnight, and cont LR at 125 mg/hr - Cont Zofran 4 mg IV Q 6 hrs prn - Repeat preE labs in the morning - If sx persist in the morning, plan for IV iron infusion (2) Chronic HTN in , third trimester (3) GDM A1 in third trimester (4) at 28 wks Conclusion/Plan Lab Results Lab results reviewed: Yes 09/19/25 17:30 09/19/25 17:30 EKG Results EKG Interpreted Independently: No EKG Findings: Normal EKG in ER Other Other Results/Comments: CMP normal, urine PCR with undetectable urine protein
[2025-09-20] MEDS ORDERED: TERBUTALINE 1 MG/ML VIAL SUBQ PRN (01:43)
[2025-09-20] MEDS ORDERED: hydrALAZINE INJ 20 MG/ML VIAL IVP PRN (01:43)
[2025-09-20 02:30] VITALS: TEMP 98.2; O2SAT 98
[2025-09-20] MEDS: ONDANSETRON 4 MG/2 ML VIAL IVP PRN (03:26)
[2025-09-20] MEDS: LACTATED RINGERS 1,000 ML IV SCH (03:26)
[2025-09-20] MEDS: ASPIRIN EC 81 MG TABLET PO SCH (03:45)
[2025-09-20] MEDS: DOXYLAMINE 25 MG TABLET PO PRN (03:45)
[2025-09-20] MEDS: SERTRALINE 25 MG TABLET PO SCH (03:46)
[2025-09-20 07:36] LABS: HCT - HEMATOCRIT 30.2 % (37.0-47.0); HGB - HEMOGLOBIN 9.9 g/dL (12.0-16.0); MEAN PLATELET VOLUME 9.5 fL (7.9-10.8); NRBC ABSOLUTE COUNT (AUTO) 0.00 x10^3/uL; NUCLEATED RED BLOOD CELLS AUTO 0.0 /100WBC; PLT - PLATELET COUNT 194 10^3/uL (130-450); RED CELL DISTRIBUTION WIDTH 15.1 % (12.0-15.0)
[2025-09-20 07:55] LABS: ALT ALANINE AMINOTRANSFERASE 9.0 IU/L (10-60); AST ASPARTATE AMINOTRANSFERASE 10.0 IU/L (10-42); BUN - BLOOD UREA NITROGEN 13.0 mg/dL (6-20); CARBON DIOXIDE - CO2 22.0 mmol/L (21-32); CREATININE 0.5 mg/dL (0.6-1.3); GFR - MDRD 137.0 (>89)
[2025-09-20 08:40] VITALS: BP 123/69
[2025-09-20] MEDS ORDERED: SERTRALINE 50 MG TABLET PO SCH (09:00)
[2025-09-20] MEDS ORDERED: LABETALOL 100 MG TABLET PO SCH (09:00)
[2025-09-20] MEDS: LABETALOL 100 MG TABLET PO SCH (10:28)
[2025-09-20] MEDS: FERRIC GLUCONATE 125 MG in SODIUM CHLORIDE 0.9% 100ML 100 ML IV ONE (10:29)
--- NOTE | 2025-09-20 11:30 | PHARMACY PROGRESS NOTE ---
Best Possible Medication History Admit Date and Time: 09/20/25 0145 Home Medications Medication Instructions Recorded Confirmed Type metformin 500 mg tablet 500 mg PO BID 04/06/1509/20 History lamotrigine 100 mg tablet 100 mg PO HS 04/08/25 History lisdexamfetamine 60 mg capsule 60 mg PO DAILY 04/08/25 09/20/25 History (Vyvanse) sertraline 25 mg tablet 25 mg PO HS 04/08/25 5 History labetalol 100 mg tablet 100 mg PO BID #60 tabs 08/2909/20/25 Rx blood sugar diagnostic (FreeStyle #100 ea 09/10/25 Rx Lite Strips) blood-glucose meter (FreeStyle #1 ea 09/10/25 09/20/25 Rx Lite Meter kit) lancets 28 gauge (FreeStyle #100 ea 09/10/25 09/20/25 Rx Lancets) ferrous sulfate 325 mg (65 mg 325 mg PO Q OTHER DAY #9 0 tabs 09/13/25 09/20/25 Rx iron) tablet aspirin 81 mg tablet,delayed 81 mg PO HS preeclampsia prevention 09/20/25 09/20/25 History release vitamins no.148-iron 27 1 cap PO DAILY 09/20/25 History mg-folate 1 mg-dha 205 mg capsule Processed by: Pharmacy Medications reviewed in ED?: No Medication History completed: Yes Patient Interview: Completed Secondary Source(s): Insurance records [facility] Statement: As the person ultimately responsible for medication therapy, providers are able to order a medication from an existing home medication list in [facility] via the "Reconcile Routine" prior to Confirmation of that medication by sales support representative. Such practice is discouraged except when the physician, in their clinical judgment, deems that a medical need exists for a medication without regard to previous use.
[2025-09-20 11:51] LABS: INFLUENZA A- RESP PCR PANEL NOT DETECTED; INFLUENZA B - RESP PCR PANEL NOT DETECTED; RSV- RESP PCR PANEL NOT DETECTED; SARS-CoV-2 -RESP PCR PANEL NOT DETECTED
--- NOTE | 2025-09-20 12:41 | Discharge Summary ---
Discharge Summary Admit Date: 09/19/25 Discharge Date: 09/20/25 Discharging Provider: Kenrick Santizo MD HPI History of Present Illness: Admission Diagnosis: - [facility] at 28w6d - chronic hypertension on labetalol - gestational diabetes - dizziness, nausea - gestational anemia Discharge Diagnosis: - Same Procedures: iron infusion Hospital Course: Ivelisse is a 39 yo at 28w6d who presented to the ED with dizziness and nausea, blood pressures noted to be above baseline. She was treated with IV fluids, antiemetics, and her home labetalol dose increased from 100mg BID to 200mg BID. She was also given an iron infusion. Condition on Discharge: With completion of iron infusion, Ivelisse reports that she is feeling much better and ready to go home. She is worried about what she will eat at home since power out currently, ideas given. Dizziness has resolved. OBJECTIVE: Vital signs reviewed GENERAL: NAD CHEST: non labored respirations ABD: soft, gravid, non tender EXT: no lower extremity edema LAB & IMAGING STUDIES: See below PLAN: - Plan for discharge home. - Continue labetalol 200mg BID with daily home BP checks. BP parameters reviewed. - Continue home blood glucose checks. - Follow up in clinic in 1 week for scheduled visit. - Plan to repeat CBC, ferritin in 3 weeks. Kenrick Santizo MD ALLERGIES Allergies Allergy/AdvReac Type Severity Reaction Status Date / Time pollen extracts Allergy Mild Sneezing, Verified 09/20/25 02:08 watery eyes feathers Allergy Hives Verified 09/20/25 12:16 MEDICATIONS Ambulatory Orders Medication Instructions Recorded Confirmed metformin 500 mg tablet 500 mg PO BID 04/06/1509/20 lamotrigine 100 mg tablet 100 mg PO HS 04/08/25 lisdexamfetamine 60 mg capsule 60 mg PO DAILY 04/08/25 09/20/25 (Vyvanse) sertraline 25 mg tablet 25 mg PO HS 04/08/25 5 blood sugar diagnostic (FreeStyle #100 ea 09/10/25 Lite Strips) blood-glucose meter (FreeStyle #1 ea 09/10/25 09/20/25 Lite Meter kit) lancets 28 gauge (FreeStyle #100 ea 09/10/25 09/20/25 Lancets) aspirin 81 mg tablet,delayed 81 mg PO HS preeclampsia prevention 09/20/25 09/20/25 release labetalol 100 mg tablet 200 mg (2 x 100 mg) PO BID # 60 tabs 09/20/25 09/20/25 vitamins no.148-iron 27 1 cap PO DAILY 09/20/25 mg-folate 1 mg-dha 205 mg capsule PHYSICAL EXAM AT DISCHARGE Vital Signs: Vital Signs x48h Temp Pulse Resp BP 09/20/25 08:38 98.2 F 77 18 123/69 LABS 09/20/25 07:30 09/20/25 07:30 TIME SPENT Time Spent in Discharge (Minutes): 30 Discharge Plan Discharge Patient Disposition: Home, Self Care Condition: Stable Prescriptions: Continued (DME) FreeStyle Lite Strips Strip See Rx Instructions .MEDSUPPLY Qty: 100 0RF Rx Instructions: Check blood sugar fasting in the morning and then 2 hours after breakfast, lunch, and dinner. Keep log of values. (DME) blood-glucose meter [FreeStyle Lite Meter] Kit See Rx Instructions .MEDSUPPLY Qty: 1 0RF Rx Instructions: Check blood sugar fasting in the morning and then 2 hours after breakfast, lunch, and dinner. Keep log of values. (DME) lancets [FreeStyle Lancets] 28 gauge misc See Rx Instructions .MEDSUPPLY Qty: 100 0RF Rx Instructions: Check blood sugar fasting in the morning and then 2 hours after breakfast, lunch, and dinner. Keep log of values. metformin 500 MG tablet 500 mg PO BID [id number] 6-dha 27 mg iron-1 mg -205 mg capsule 1 cap PO DAILY aspirin 81 mg tablet,delayed release (DR/EC) 81 mg PO HS lisdexamfetamine [Vyvanse] 60 mg capsule 60 mg PO DAILY sertraline 25 mg tablet 25 mg PO HS lamotrigine 100 mg tablet 100 mg PO HS Changed labetalol 100 mg tablet 200 mg PO BID Qty: 60 2RF Discontinued ferrous sulfate 325 mg (65 mg iron) tablet 325 mg PO Q OTHER DAY Qty: 90 2RF Activity Restrictions/Additional Instructions: - Your dose of labetalol was increased to 200mg twice daily. - We will recheck your blood counts and iron stores in approximately 3 weeks. - Continue to take blood pressures at home daily. If blood pressure is less than systolic 110 or diastolic 60 (110/60), hold your blood pressure medication and notify clinic. If your blood pressure is higher than systolic 160 or diastolic 110 (160/110), then you should present to the emergency department. - Continue to check your blood sugars 4 times daily, fasting and two hours after breakfast, lunch, and dinner and keep a log of these values. - Follow up in clinic for your scheduled visit in 1 week. Print Language: Serbian Patient Instructions: Anemia During Stand Alone Forms: PCP List, SBIRT Follow-up Care: Kenrick Santizo MD [Provider Admit Priv/Credential, Obstetrics/Gynecology]
--- NOTE | 2025-09-23 12:52 | PROVIDER PROGRESS NOTE ---
Objective Vital Signs/Intake & Output Reviewed Vital Signs: Yes Intake & Output: Intake & Output 09/20/25 09/21/25 09/22/25 09/23/25 23:59 23:59 23:59 23:59 Intake Total 1350 / 1350 Balance 1350 / 1350 Weight (kg) 90.256 kg EFM/NST Note (overnight monitoring): NST performed 09/20 from 0210 to 0250: Baseline 135 bpm Accels present (10 x 10, appropriate for gestational age) Decels absent Variability moderate No contractions NST reactive for gestational age/cat 1 Lab Results 09/20/25 07:30 09/20/25 07:30 Assessment/Plan Problem List (1) Dizziness and giddiness: Impression: Reactive/reassuring NST/EFM overnight (2) Essential hypertension affecting in third trimester:
--- NOTE | 2025-09-25 08:41 | PROCEDURE REPORT ---
HPI Diagnosis/Indication for NST: Other (chronic hypertension) Current : Current EDU 12/06/25 Gestation 29 Weeks and 0 Days Para 4 Vital Signs Temperature 98.2 F 09/20/25 08:38 Pulse Rate 77 09/20/25 08:38 Respiratory Rate 18 09/20/25 08:38 Blood Pressure 123/69 09/20/25 08:38 O2 Saturation 98 09/20/25 02:22 If not protocol: Oxygen Flow, liters/minute 97 09/19/25 22:30
== END 2025-09-20 13:15 | disposition home or self-care (01) ==
LOC: ED 16:55 → FBP 16:55
PROVIDERS: ADMIT Obstetrics & Gynecology; ATTEND Obstetrics & Gynecology